=== PATIENT | female | born 1940 | race Caucasian/White ===

== ENCOUNTER 2017-11-19 15:34 | Inpatient (IN) | payer MEDICARE, SELFPAY ==
[2017-11-19] VITALS (8 sets, daily range): BP systolic 98–151; BP diastolic 47–61; PULSE 71–90; RESP 14–18; TEMP 36.7–39.4; O2SAT 94–96; BMI 22.3
--- NOTE | 2017-11-19 15:57 | ED.FEMALEGU ---
HPI - Female Genitourinary <RAMEZ Wyman - Last Filed: 11/19/17 20:54> General Chief complaint: Urogenital-Female Stated complaint: UTI Time Seen by Provider: 11/19/17 15:57 History of Present Illness HPI Narrative: 77-year-old female here for complaint of fever and feeling ill over the past couple of days. She was seen at primary care office approximately 4 days ago and was treated for urinary tract infection with Keflex. She reports over the last couple days she has been feeling worse and has had fever. She denies any urinary symptoms such as dysuria or flank pain. She denies any abdominal pain. No vomiting. Positive p.o. intake. She denies having a cough or cold-like symptoms. No headache. She denies any other concerns or complaints at this time. She does state that she has been taking her antibiotics as prescribed MD Complaint: UTI Related Data Home Medications Medication Instructions Recorded Confirmed Centrum Silver 1 tab PO DAILY 11/19/17 11/19/17 acetaminophen 500 mg PO Q4H PRN 11/19/17 11/19/17 ascorbic acid (vitamin C) [Vitamin 1 tab PO DAILY 11/19/17 11/19/17 C] aspirin 81 mg PO DAILY 11/19/17 11/19/17 calcium carbonate [Calcium 600] 1 tab PO DAILYCC 11/19/17 11/19/17 cholecalciferol (vitamin D3) 2,000 unit PO DAILY 11/19/17 11/19/17 [Vitamin D3] cyanocobalamin (vitamin B-12) 2,000 mcg PO DAILY 11/19/17 11/19/17 [Vitamin B-12] diclofenac sodium 1 applic TOPICAL Q8H PRN 11/19/17 11/19/17 levothyroxine 1.5 tab PO WEEKLY 11/19/17 11/19/17 levothyroxine 75 mcg PO DAILY 11/19/17 11/19/17 omega [id number] oil [Fish Oil] 1 cap PO DAILY 11/19/17 11/19/17 Previous Rx's Medication Instructions Recorded cefuroxime axetil 500 mg PO BID 8 Days #32 tab 11/21/17 dextromethorphan-guaifenesin 10 ml PO Q4H PRN 8 Days ml 11/21/17 potassium chloride [Klor-Con M20] 40 meq PO BIDWM 3 Days #6 tab 11/21/17 Allergies Allergy/AdvReac Type Severity Reaction Status Date / Time No Known Drug Allergies Allergy Verified 11/19/17 15:48 Review of Systems <RAMEZ Wymna - Last Filed: 11/19/17 20:54> Constitutional Reports fever(s) and Reports malaise Eyes Denies change in vision, Denies eye discharge, Denies irritation and Denies loss of vision ENT Ears, Nose, Mouth, and Throat: Denies change in voice, Denies neck pain and Denies sore throat Cardiovascular Denies chest pain, Denies irregular heart rhythm, Denies lightheadedness, Denies palpitations, Denies dyspnea, Denies dyspnea on exertion and Denies orthopnea Respiratory Denies cough, Denies dyspnea, Denies dyspnea on exertion and Denies wheezing Gastrointestinal Gastrointestinal: Denies abdominal pain, Denies change in bowel habits, Denies diarrhea, Denies nausea and Denies vomiting Genitourinary Denies hematuria, Denies flank pain, Denies urinary incontinence and Denies urinary urgency Musculoskeletal Denies neck pain Integumentary/Breasts Denies pruritus, Denies erythema, Denies rash and Denies wounds Neurologic Denies confusion and Denies loss of vision Psychiatric Denies anxiety, Denies confusion, Denies depression, Denies homicidal ideation and Denies suicidal ideation Endocrine Denies palpitations Hematologic/Lymphatic Denies easy bruising Allergic/Immunologic Denies wheezing Exam <RAMEZ Wyman - Last Filed: 11/19/17 20:54> Initial Vital Signs Initial Vital Signs: Vital Signs Temperature 103.0 F H 11/19/17 15:48 Pulse Rate 90 11/19/17 15:48 Respiratory Rate 15 11/19/17 15:48 Blood Pressure 151/54 H 11/19/17 15:48 Pulse Oximetry 95 11/19/17 15:48 Const General: cooperative and well developed Nutritional Appearance: well nourished Orientation: alert, awake, oriented x3 and not confused [facility] Mouth: oral mucosae normal, oropharynx normal and moist mucous membranes Eyes Conjunctivae: conjunctivae normal Sclera: sclerae normal Pupils: PERRL EOM: EOM intact bilaterally Resp Effort & Inspection: normal respiratory effort, able to speak in complete sentences, no respiratory distress and no use of accessory muscles Auscultation: clear to auscultation bilaterally, no rales, no rhonchi and no wheezes Cardio Pulses: normal peripheral pulses GI Inspection: non-distended Palpation: soft, no hepatosplenomegaly, No guarding, No pulsatile mass and No tender Auscultation: normal bowel sounds General: No CVA tenderness Skin General: no rashes or lesions noted, No jaundice and No petechiae <Ritchie Sawyer DO - Last Filed: 11/22/17 08:38> Initial Vital Signs Initial Vital Signs: Vital Signs Temperature 103.0 F H 11/19/17 15:48 Pulse Rate 90 11/19/17 15:48 Respiratory Rate 15 11/19/17 15:48 Blood Pressure 151/54 H 11/19/17 15:48 Pulse Oximetry 95 11/19/17 15:48 Course <RAMEZ Wyman - Last Filed: 11/19/17 20:54> Orders Ordered: Discontinued Medications Acetaminophen (Tylenol) 650 mg PO Q6HR PRN PRN Reason: As Needed for Fever/Mild Pain Last Admin: 11/21/17 10:20 Dose: 650 mg Admin: 11/20/17 21:33 Dose: 650 mg Admin: 11/20/17 11:33 Dose: 650 mg Admin: 11/20/17 03:56 Dose: 650 mg Azithromycin (Zithromax) 500 mg PO DAILY [facility] Last Admin: 11/21/17 10:19 Dose: 500 mg Cefuroxime Axetil (Ceftin) 500 mg PO BID [facility] Last Admin: 11/21/17 10:19 Dose: 500 mg Guaifenesin/Dextromethorphan (Robitussin Dm Syrup) 10 ml PO Q4H PRN PRN Reason: Cough Guaifenesin/Dextromethorphan (Guaifenesin Dm Syrup) 10 ml PO Q4H PRN PRN Reason: Cough Last Admin: 11/21/17 14:40 Dose: 10 ml Admin: 11/21/17 10:20 Dose: 10 ml Admin: 11/21/17 06:05 Dose: 10 ml Admin: 11/20/17 23:49 Dose: 10 ml Admin: 11/20/17 19:45 Dose: 10 ml Sodium Chloride (Normal Saline 0.9%) 1,000 mls @ 1,000 mls/hr IV BOLUS ONE Stop: 11/19/17 17:05 Last Infusion: 11/19/17 17:20 Dose: 0 mls/hr Admin: 11/19/17 16:16 Dose: 1,000 mls/hr Ceftriaxone Sodium/Dextrose (Rocephin) 1 gm in 50 mls @ 100 mls/hr IV NOW ONE Stop: 11/19/17 17:30 Last Infusion: 11/19/17 17:47 Dose: 0 mls/hr Admin: 11/19/17 17:21 Dose: 100 mls/hr Azithromycin 500 mg/ Dextrose 250 mls @ 250 mls/hr IV NOW ONE Stop: 11/19/17 17:14 Last Infusion: 11/19/17 18:56 Dose: 0 mls/hr Admin: 11/19/17 17:50 Dose: 250 mls/hr Azithromycin 500 mg/ Dextrose 250 mls @ 250 mls/hr IV 1800 JUAN Last Infusion: 11/20/17 19:45 Dose: 250 mls/hr Admin: 11/20/17 18:35 Dose: 250 mls/hr Sodium Chloride (Normal Saline 0.9%) 1,000 mls @ 100 mls/hr IV CONT JUAN Stop: 11/20/17 05:29 Last Admin: 11/20/17 01:30 Dose: 100 mls/hr Admin: 11/19/17 20:10 Dose: Ceftriaxone Sodium/Dextrose (Rocephin) 1 gm in 50 mls @ 100 mls/hr IV 1700 JUAN Last Infusion: 11/20/17 18:38 Dose: 100 mls/hr Admin: 11/20/17 17:30 Dose: 100 mls/hr Ketorolac Tromethamine (Toradol) 30 mg IV NOW ONE Stop: 11/19/17 16:07 Last Admin: 11/19/17 16:17 Dose: 30 mg Levothyroxine Sodium (Synthroid) 75 mcg PO 0600 [facility] Last Admin: 11/21/17 06:05 Dose: 75 mcg Admin: 11/20/17 05:36 Dose: 75 mcg Magnesium Hydroxide (Milk Of Magnesia) 30 ml PO DAILY PRN PRN Reason: Constipation Potassium Chloride (Klor-Con M20) 40 meq PO NOW ONE Stop: 11/21/17 07:57 Last Admin: 11/21/17 08:56 Dose: 40 meq Potassium Chloride (Klor-Con M20) 40 meq PO BIDWM [facility] Last Admin: 11/21/17 15:02 Dose: 40 meq Vital Signs - 8 hr 11/19/17 15:48 11/19/17 17:05 11/19/17 17:19 Temperature 103.0 F H 101.3 F H Pulse Rate 90 79 Respiratory Rate 15 16 Blood Pressure 151/54 H Blood Pressure [Left Arm] 113/50 L Pulse Oximetry 95 94 11/19/17 17:30 11/19/17 18:50 11/19/17 20:05 Temperature 98.8 F 98.4 F Pulse Rate 75 71 71 Respiratory Rate 14 18 Blood Pressure 114/61 Blood Pressure [Left Arm] 106/47 L 98/52 L Pulse Oximetry 95 95 95 <Ritchie Sawyer DO - Last Filed: 11/22/17 08:38> Orders Ordered: Discontinued Medications Acetaminophen (Tylenol) 650 mg PO Q6HR PRN PRN Reason: As Needed for Fever/Mild Pain Last Admin: 11/21/17 10:20 Dose: 650 mg Admin: 11/20/17 21:33 Dose: 650 mg Admin: 11/20/17 11:33 Dose: 650 mg Admin: 11/20/17 03:56 Dose: 650 mg Azithromycin (Zithromax) 500 mg PO DAILY [facility] Last Admin: 11/21/17 10:19 Dose: 500 mg Cefuroxime Axetil (Ceftin) 500 mg PO BID [facility] Last Admin: 11/21/17 10:19 Dose: 500 mg Guaifenesin/Dextromethorphan (Robitussin Dm Syrup) 10 ml PO Q4H PRN PRN Reason: Cough Guaifenesin/Dextromethorphan (Guaifenesin Dm Syrup) 10 ml PO Q4H PRN PRN Reason: Cough Last Admin: 11/21/17 14:40 Dose: 10 ml Admin: 11/21/17 10:20 Dose: 10 ml Admin: 11/21/17 06:05 Dose: 10 ml Admin: 11/20/17 23:49 Dose: 10 ml Admin: 11/20/17 19:45 Dose: 10 ml Sodium Chloride (Normal Saline 0.9%) 1,000 mls @ 1,000 mls/hr IV BOLUS ONE Stop: 11/19/17 17:05 Last Infusion: 11/19/17 17:20 Dose: 0 mls/hr Admin: 11/19/17 16:16 Dose: 1,000 mls/hr Ceftriaxone Sodium/Dextrose (Rocephin) 1 gm in 50 mls @ 100 mls/hr IV NOW ONE Stop: 11/19/17 17:30 Last Infusion: 11/19/17 17:47 Dose: 0 mls/hr Admin: 11/19/17 17:21 Dose: 100 mls/hr Azithromycin 500 mg/ Dextrose 250 mls @ 250 mls/hr IV NOW ONE Stop: 11/19/17 17:14 Last Infusion: 11/19/17 18:56 Dose: 0 mls/hr Admin: 11/19/17 17:50 Dose: 250 mls/hr Azithromycin 500 mg/ Dextrose 250 mls @ 250 mls/hr IV 1800 JUAN Last Infusion: 11/20/17 19:45 Dose: 250 mls/hr Admin: 11/20/17 18:35 Dose: 250 mls/hr Sodium Chloride (Normal Saline 0.9%) 1,000 mls @ 100 mls/hr IV CONT JUAN Stop: 11/20/17 05:29 Last Admin: 11/20/17 01:30 Dose: 100 mls/hr Admin: 11/19/17 20:10 Dose: Ceftriaxone Sodium/Dextrose (Rocephin) 1 gm in 50 mls @ 100 mls/hr IV 1700 JUAN Last Infusion: 11/20/17 18:38 Dose: 100 mls/hr Admin: 11/20/17 17:30 Dose: 100 mls/hr Ketorolac Tromethamine (Toradol) 30 mg IV NOW ONE Stop: 11/19/17 16:07 Last Admin: 11/19/17 16:17 Dose: 30 mg Levothyroxine Sodium (Synthroid) 75 mcg PO 0600 JUAN Last Admin: 11/21/17 06:05 Dose: 75 mcg Admin: 11/20/17 05:36 Dose: 75 mcg Magnesium Hydroxide (Milk Of Magnesia) 30 ml PO DAILY PRN PRN Reason: Constipation Potassium Chloride (Klor-Con M20) 40 meq PO NOW ONE Stop: 11/21/17 07:57 Last Admin: 11/21/17 08:56 Dose: 40 meq Potassium Chloride (Klor-Con M20) 40 meq PO BIDWM JUAN Last Admin: 11/21/17 15:02 Dose: 40 meq Vital Signs - 8 hr 11/19/17 15:48 11/19/17 17:05 11/19/17 17:19 Temperature 103.0 F H 101.3 F H Pulse Rate 90 79 Respiratory Rate 15 16 Blood Pressure 151/54 H Blood Pressure [Left Arm] 113/50 L Pulse Oximetry 95 94 11/19/17 17:30 11/19/17 18:50 11/19/17 20:05 Temperature 98.8 F 98.4 F Pulse Rate 75 71 71 Respiratory Rate 14 18 Blood Pressure 114/61 Blood Pressure [Left Arm] 106/47 L 98/52 L Pulse Oximetry 95 95 95 MDM - Female Genitourinary <RAMEZ Wyman - Last Filed: 11/19/17 20:54> Lab Data Result diagrams: 11/21/17 05:03 11/21/17 05:03 Lab Results 11/19/17 11/19/17 11/19/17 Range/Units 15:45 15:54 15:54 WBC 12.7 H (4.5-11.0) X10^3/uL RBC 3.65 L (4.0-5.2) X10^6/uL Hgb 11.4 L (12.0-16.0) g/dL Hct 31.1 L (36-46) % MCV 85.1 (80-100) fL MCH 31.2 (26-34) PG MCHC 36.7 H (30-36) % RDW 13.4 (11.6-14.8) % Plt Count 157 (150-400) X10^3/uL Neut % (Auto) 85.0 H (50-75) % Lymph % (Auto) 5.2 L (25-40) % [place] % (Auto) 9.5 (3-14) % Eos % (Auto) 0.0 L (2-4) % Baso % (Auto) 0.3 (0-2) % Neut # (Auto) 31146 H (3944-5370) /uL RBC Morphology Poikilocytosis Spherocytes Sodium (137-145) mmol/L Potassium (3.4-5.1) mmol/L Chloride (98-107) mmol/L Carbon Dioxide (22-32) mmol/L BUN (7-17) mg/dL Creatinine (0.52-1.04) mg/dL Estimated GFR (>60) mL/min BUN/Creatinine Ratio (6-22) Glucose (80-110) mg/dL Lactate (0.7-2.1) mmol/L Calcium (8.4-10.2) mg/dL Iron (37-170) ug/dL TIBC (265-497) ug/dL % Saturation (15-50) % Transferrin (206-381) mg/dL Ferritin (11.1-264) ng/mL Total Bilirubin (0.2-1.3) mg/dL AST (14-36) IU/L ALT (9-52) IU/L Alkaline Phosphatase (38-126) U/L Total Protein (6.3-8.2) g/dL Albumin (3.5-5.0) g/dL Globulin (1.7-4.1) g/dL Albumin/Globulin Ratio (1.0-2.8) Procalcitonin 1.06 H (<0.5) ng/mL Urine Color Yellow Urine Appearance Sl cloudy Urine pH 6.0 (4.5-8.0) Ur Specific [place] 1.020 (1.000-1.035) Urine Protein 2+ H (Negative) Urine Glucose (UA) Negative (Normal) g/dL Urine Ketones 1+ H (NEGATIVE) Urine Occult Blood 2+ H (Negative) Urine Nitrate Negative (Negative) Urine Bilirubin Negative (NEGATIVE) Urine Urobilinogen 0.2 (0.2) E.U./dL Ur Leukocyte Esterase Trace H (NEGATIVE) Urine RBC 0-1/hpf (0-5/HPF) Urine WBC 30-100/hpf H (0-5/HPF) Ur Squamous Epith Cells 0-1 /hpf Ur Transition Epith Cell 0-1/hpf (0-5/HPF) Ur Renal Epithelial Cell 0-1/hpf Urine Bacteria Moderate (10-30) H (None) Ur Culture Indicated? Specimen cultured Micro UA Comment Not Reportable Influenza A & B (PCR) (Negative) 11/19/17 11/19/17 11/19/17 Range/Units 15:54 15:54 15:54 WBC (4.5-11.0) X10^3/uL RBC (4.0-5.2) X10^6/uL Hgb (12.0-16.0) g/dL Hct (36-46) % MCV (80-100) fL MCH (26-34) PG MCHC (30-36) % RDW (11.6-14.8) % Plt Count (150-400) X10^3/uL Neut % (Auto) (50-75) % Lymph % (Auto) (25-40) % [place] % (Auto) (3-14) % Eos % (Auto) (2-4) % Baso % (Auto) (0-2) % Neut # (Auto) (3457-5222) /uL RBC Morphology Poikilocytosis Spherocytes Sodium 129 L (137-145) mmol/L Potassium 3.8 (3.4-5.1) mmol/L Chloride 91 L (98-107) mmol/L Carbon Dioxide 24 (22-32) mmol/L BUN 21 H (7-17) mg/dL Creatinine 0.80 (0.52-1.04) mg/dL Estimated GFR > 60.0 (>60) mL/min BUN/Creatinine Ratio 26.3 H (6-22) Glucose 117 H (80-110) mg/dL Lactate 1.1 (0.7-2.1) mmol/L Calcium 8.6 (8.4-10.2) mg/dL Iron (37-170) ug/dL TIBC (265-497) ug/dL % Saturation (15-50) % Transferrin (206-381) mg/dL Ferritin 694.0 H (11.1-264) ng/mL Total Bilirubin 0.9 (0.2-1.3) mg/dL AST 56 H (14-36) IU/L ALT 73 H (9-52) IU/L Alkaline Phosphatase 160 H (38-126) U/L Total Protein 6.9 (6.3-8.2) g/dL Albumin 3.7 (3.5-5.0) g/dL Globulin 3.2 (1.7-4.1) g/dL Albumin/Globulin Ratio 1.2 (1.0-2.8) Procalcitonin (<0.5) ng/mL Urine Color Urine Appearance Urine pH (4.5-8.0) Ur Specific [place] (1.000-1.035) Urine Protein (Negative) Urine Glucose (UA) (Normal) g/dL Urine Ketones (NEGATIVE) Urine Occult Blood (Negative) Urine Nitrate (Negative) Urine Bilirubin (NEGATIVE) Urine Urobilinogen (0.2) E.U./dL Ur Leukocyte Esterase (NEGATIVE) Urine RBC (0-5/HPF) Urine WBC (0-5/HPF) Ur Squamous Epith Cells Ur Transition Epith Cell (0-5/HPF) Ur Renal Epithelial Cell Urine Bacteria (None) Ur Culture Indicated? Micro UA Comment Influenza A & B (PCR) (Negative) 11/19/17 11/19/17 11/20/17 Range/Units 15:54 16:08 05:10 WBC 9.2 (4.5-11.0) X10^3/uL RBC 3.16 L (4.0-5.2) X10^6/uL Hgb 9.9 L (12.0-16.0) g/dL Hct 26.6 L (36-46) % MCV 84.4 (80-100) fL MCH 31.4 (26-34) PG MCHC 37.2 H (30-36) % RDW 13.7 (11.6-14.8) % Plt Count 137 L (150-400) X10^3/uL Neut % (Auto) 85.1 H (50-75) % Lymph % (Auto) 4.8 L (25-40) % [place] % (Auto) 9.7 (3-14) % Eos % (Auto) 0.1 L (2-4) % Baso % (Auto) 0.3 (0-2) % Neut # (Auto) 7800 H (1747-4603) /uL RBC Morphology Not Reportable Poikilocytosis 1+ H Spherocytes Sodium (137-145) mmol/L Potassium (3.4-5.1) mmol/L Chloride (98-107) mmol/L Carbon Dioxide (22-32) mmol/L BUN (7-17) mg/dL Creatinine (0.52-1.04) mg/dL Estimated GFR (>60) mL/min BUN/Creatinine Ratio (6-22) Glucose (80-110) mg/dL Lactate (0.7-2.1) mmol/L Calcium (8.4-10.2) mg/dL Iron 21 L (37-170) ug/dL TIBC 326 (265-497) ug/dL % Saturation 6 L (15-50) % Transferrin 157 L (206-381) mg/dL Ferritin (11.1-264) ng/mL Total Bilirubin (0.2-1.3) mg/dL AST (14-36) IU/L ALT (9-52) IU/L Alkaline Phosphatase (38-126) U/L Total Protein (6.3-8.2) g/dL Albumin (3.5-5.0) g/dL Globulin (1.7-4.1) g/dL Albumin/Globulin Ratio (1.0-2.8) Procalcitonin (<0.5) ng/mL Urine Color Urine Appearance Urine pH (4.5-8.0) Ur Specific [place] (1.000-1.035) Urine Protein (Negative) Urine Glucose (UA) (Normal) g/dL Urine Ketones (NEGATIVE) Urine Occult Blood (Negative) Urine Nitrate (Negative) Urine Bilirubin (NEGATIVE) Urine Urobilinogen (0.2) E.U./dL Ur Leukocyte Esterase (NEGATIVE) Urine RBC (0-5/HPF) Urine WBC (0-5/HPF) Ur Squamous Epith Cells Ur Transition Epith Cell (0-5/HPF) Ur Renal Epithelial Cell Urine Bacteria (None) Ur Culture Indicated? Micro UA Comment Influenza A & B (PCR) Negative (Negative) 11/21/17 11/21/17 Range/Units 05:03 05:03 WBC 9.4 (4.5-11.0) X10^3/uL RBC 3.43 L (4.0-5.2) X10^6/uL Hgb 10.7 L (12.0-16.0) g/dL Hct 29.1 L (36-46) % MCV 85.0 (80-100) fL MCH 31.4 (26-34) PG MCHC 36.9 H (30-36) % RDW 13.5 (11.6-14.8) % Plt Count 165 (150-400) X10^3/uL Neut % (Auto) 76.5 H (50-75) % Lymph % (Auto) 11.8 L (25-40) % [place] % (Auto) 10.4 (3-14) % Eos % (Auto) 0.7 L (2-4) % Baso % (Auto) 0.6 (0-2) % Neut # (Auto) 7200 H (3666-0967) /uL RBC Morphology Not Reportable Poikilocytosis 1+ H Spherocytes 1+ H Sodium 134 L (137-145) mmol/L Potassium 3.0 L (3.4-5.1) mmol/L Chloride 98 (98-107) mmol/L Carbon Dioxide 27 (22-32) mmol/L BUN 8 (7-17) mg/dL Creatinine 0.60 (0.52-1.04) mg/dL Estimated GFR > 60.0 (>60) mL/min BUN/Creatinine Ratio 13.3 (6-22) Glucose 98 (80-110) mg/dL Lactate (0.7-2.1) mmol/L Calcium 8.4 (8.4-10.2) mg/dL Iron (37-170) ug/dL TIBC (265-497) ug/dL % Saturation (15-50) % Transferrin (206-381) mg/dL Ferritin (11.1-264) ng/mL Total Bilirubin (0.2-1.3) mg/dL AST (14-36) IU/L ALT (9-52) IU/L Alkaline Phosphatase (38-126) U/L Total Protein (6.3-8.2) g/dL Albumin (3.5-5.0) g/dL Globulin (1.7-4.1) g/dL Albumin/Globulin Ratio (1.0-2.8) Procalcitonin (<0.5) ng/mL Urine Color Urine Appearance Urine pH (4.5-8.0) Ur Specific [place] (1.000-1.035) Urine Protein (Negative) Urine Glucose (UA) (Normal) g/dL Urine Ketones (NEGATIVE) Urine Occult Blood (Negative) Urine Nitrate (Negative) Urine Bilirubin (NEGATIVE) Urine Urobilinogen (0.2) E.U./dL Ur Leukocyte Esterase (NEGATIVE) Urine RBC (0-5/HPF) Urine WBC (0-5/HPF) Ur Squamous Epith Cells Ur Transition Epith Cell (0-5/HPF) Ur Renal Epithelial Cell Urine Bacteria (None) Ur Culture Indicated? Micro UA Comment Influenza A & B (PCR) (Negative) Imaging Data Chest x-ray: Radiologist's impression: PROCEDURE: XR CHEST 2V INDICATIONS: Fever TECHNIQUE: 2 views of the chest were acquired. COMPARISON: None. FINDINGS: Surgical changes and devices: None. Lungs and pleura: No pleural effusions or pneumothorax. Pulmonary consolidation is present in the posterolateral right lower lobe consistent with pneumonia. Mediastinum: Mediastinal contours are normal. Heart size is normal. Bones and chest wall: No suspicious bony abnormalities. Scoliosis. Soft tissues appear unremarkable. IMPRESSION: Right lower lobe pneumonia Dictated by: Ishan Peck M.D. on 11/19/2017 at 16:49 Approved by: Ishan Peck M.D. on 11/19/2017 at 16:50 MDM Narrative Medical decision making narrative: CBC shows elevated white count. Lactate was negative. Procalcitonin was slightly elevated. Urinalysis indicates urinary tract infection. Chest x-ray was obtained shows right lower lobe pneumonia. Patient states she felt better after getting fluids in the emergency room and also Toradol. Blood cultures are obtained and pending. Urine culture is pending. Discussed case with Dr. Esquivel hospitalist for admission for IV antibiotics and he accepted patient. Patient was given Rocephin IV and azithromycin in the emergency room. Patient is admitted to inpatient services for further care and treatment. <Ritchie Sawyer, - Last Filed: 11/22/17 08:38> Lab Data Lab Results 11/19/17 11/19/17 11/19/17 Range/Units 15:45 15:54 15:54 WBC 12.7 H (4.5-11.0) X10^3/uL RBC 3.65 L (4.0-5.2) X10^6/uL Hgb 11.4 L (12.0-16.0) g/dL Hct 31.1 L (36-46) % MCV 85.1 (80-100) fL MCH 31.2 (26-34) PG MCHC 36.7 H (30-36) % RDW 13.4 (11.6-14.8) % Plt Count 157 (150-400) X10^3/uL Neut % (Auto) 85.0 H (50-75) % Lymph % (Auto) 5.2 L (25-40) % [place] % (Auto) 9.5 (3-14) % Eos % (Auto) 0.0 L (2-4) % Baso % (Auto) 0.3 (0-2) % Neut # (Auto) 27401 H (0547-9036) /uL RBC Morphology Poikilocytosis Spherocytes Sodium (137-145) mmol/L Potassium (3.4-5.1) mmol/L Chloride (98-107) mmol/L Carbon Dioxide (22-32) mmol/L BUN (7-17) mg/dL Creatinine (0.52-1.04) mg/dL Estimated GFR (>60) mL/min BUN/Creatinine Ratio (6-22) Glucose (80-110) mg/dL Lactate (0.7-2.1) mmol/L Calcium (8.4-10.2) mg/dL Iron (37-170) ug/dL TIBC (265-497) ug/dL % Saturation (15-50) % Transferrin (206-381) mg/dL Ferritin (11.1-264) ng/mL Total Bilirubin (0.2-1.3) mg/dL AST (14-36) IU/L ALT (9-52) IU/L Alkaline Phosphatase (38-126) U/L Total Protein (6.3-8.2) g/dL Albumin (3.5-5.0) g/dL Globulin (1.7-4.1) g/dL Albumin/Globulin Ratio (1.0-2.8) Procalcitonin 1.06 H (<0.5) ng/mL Urine Color Yellow Urine Appearance Sl cloudy Urine pH 6.0 (4.5-8.0) Ur Specific [place] 1.020 (1.000-1.035) Urine Protein 2+ H (Negative) Urine Glucose (UA) Negative (Normal) g/dL Urine Ketones 1+ H (NEGATIVE) Urine Occult Blood 2+ H (Negative) Urine Nitrate Negative (Negative) Urine Bilirubin Negative (NEGATIVE) Urine Urobilinogen 0.2 (0.2) E.U./dL Ur Leukocyte Esterase Trace H (NEGATIVE) Urine RBC 0-1/hpf (0-5/HPF) Urine WBC 30-100/hpf H (0-5/HPF) Ur Squamous Epith Cells 0-1 /hpf Ur Transition Epith Cell 0-1/hpf (0-5/HPF) Ur Renal Epithelial Cell 0-1/hpf Urine Bacteria Moderate (10-30) H (None) Ur Culture Indicated? Specimen cultured Micro UA Comment Not Reportable Influenza A & B (PCR) (Negative) 11/19/17 11/19/17 11/19/17 Range/Units 15:54 15:54 15:54 WBC (4.5-11.0) X10^3/uL RBC (4.0-5.2) X10^6/uL Hgb (12.0-16.0) g/dL Hct (36-46) % MCV (80-100) fL MCH (26-34) PG MCHC (30-36) % RDW (11.6-14.8) % Plt Count (150-400) X10^3/uL Neut % (Auto) (50-75) % Lymph % (Auto) (25-40) % [place] % (Auto) (3-14) % Eos % (Auto) (2-4) % Baso % (Auto) (0-2) % Neut # (Auto) (7243-7380) /uL RBC Morphology Poikilocytosis Spherocytes Sodium 129 L (137-145) mmol/L Potassium 3.8 (3.4-5.1) mmol/L Chloride 91 L (98-107) mmol/L Carbon Dioxide 24 (22-32) mmol/L BUN 21 H (7-17) mg/dL Creatinine 0.80 (0.52-1.04) mg/dL Estimated GFR > 60.0 (>60) mL/min BUN/Creatinine Ratio 26.3 H (6-22) Glucose 117 H (80-110) mg/dL Lactate 1.1 (0.7-2.1) mmol/L Calcium 8.6 (8.4-10.2) mg/dL Iron (37-170) ug/dL TIBC (265-497) ug/dL % Saturation (15-50) % Transferrin (206-381) mg/dL Ferritin 694.0 H (11.1-264) ng/mL Total Bilirubin 0.9 (0.2-1.3) mg/dL AST 56 H (14-36) IU/L ALT 73 H (9-52) IU/L Alkaline Phosphatase 160 H (38-126) U/L Total Protein 6.9 (6.3-8.2) g/dL Albumin 3.7 (3.5-5.0) g/dL Globulin 3.2 (1.7-4.1) g/dL Albumin/Globulin Ratio 1.2 (1.0-2.8) Procalcitonin (<0.5) ng/mL Urine Color Urine Appearance Urine pH (4.5-8.0) Ur Specific [place] (1.000-1.035) Urine Protein (Negative) Urine Glucose (UA) (Normal) g/dL Urine Ketones (NEGATIVE) Urine Occult Blood (Negative) Urine Nitrate (Negative) Urine Bilirubin (NEGATIVE) Urine Urobilinogen (0.2) E.U./dL Ur Leukocyte Esterase (NEGATIVE) Urine RBC (0-5/HPF) Urine WBC (0-5/HPF) Ur Squamous Epith Cells Ur Transition Epith Cell (0-5/HPF) Ur Renal Epithelial Cell Urine Bacteria (None) Ur Culture Indicated? Micro UA Comment Influenza A & B (PCR) (Negative) 11/19/17 11/19/17 11/20/17 Range/Units 15:54 16:08 05:10 WBC 9.2 (4.5-11.0) X10^3/uL RBC 3.16 L (4.0-5.2) X10^6/uL Hgb 9.9 L (12.0-16.0) g/dL Hct 26.6 L (36-46) % MCV 84.4 (80-100) fL MCH 31.4 (26-34) PG MCHC 37.2 H (30-36) % RDW 13.7 (11.6-14.8) % Plt Count 137 L (150-400) X10^3/uL Neut % (Auto) 85.1 H (50-75) % Lymph % (Auto) 4.8 L (25-40) % [place] % (Auto) 9.7 (3-14) % Eos % (Auto) 0.1 L (2-4) % Baso % (Auto) 0.3 (0-2) % Neut # (Auto) 7800 H (8224-1975) /uL RBC Morphology Not Reportable Poikilocytosis 1+ H Spherocytes Sodium (137-145) mmol/L Potassium (3.4-5.1) mmol/L Chloride (98-107) mmol/L Carbon Dioxide (22-32) mmol/L BUN (7-17) mg/dL Creatinine (0.52-1.04) mg/dL Estimated GFR (>60) mL/min BUN/Creatinine Ratio (6-22) Glucose (80-110) mg/dL Lactate (0.7-2.1) mmol/L Calcium (8.4-10.2) mg/dL Iron 21 L (37-170) ug/dL TIBC 326 (265-497) ug/dL % Saturation 6 L (15-50) % Transferrin 157 L (206-381) mg/dL Ferritin (11.1-264) ng/mL Total Bilirubin (0.2-1.3) mg/dL AST (14-36) IU/L ALT (9-52) IU/L Alkaline Phosphatase (38-126) U/L Total Protein (6.3-8.2) g/dL Albumin (3.5-5.0) g/dL Globulin (1.7-4.1) g/dL Albumin/Globulin Ratio (1.0-2.8) Procalcitonin (<0.5) ng/mL Urine Color Urine Appearance Urine pH (4.5-8.0) Ur Specific [place] (1.000-1.035) Urine Protein (Negative) Urine Glucose (UA) (Normal) g/dL Urine Ketones (NEGATIVE) Urine Occult Blood (Negative) Urine Nitrate (Negative) Urine Bilirubin (NEGATIVE) Urine Urobilinogen (0.2) E.U./dL Ur Leukocyte Esterase (NEGATIVE) Urine RBC (0-5/HPF) Urine WBC (0-5/HPF) Ur Squamous Epith Cells Ur Transition Epith Cell (0-5/HPF) Ur Renal Epithelial Cell Urine Bacteria (None) Ur Culture Indicated? Micro UA Comment Influenza A & B (PCR) Negative (Negative) 11/21/17 11/21/17 Range/Units 05:03 05:03 WBC 9.4 (4.5-11.0) X10^3/uL RBC 3.43 L (4.0-5.2) X10^6/uL Hgb 10.7 L (12.0-16.0) g/dL Hct 29.1 L (36-46) % MCV 85.0 (80-100) fL MCH 31.4 (26-34) PG MCHC 36.9 H (30-36) % RDW 13.5 (11.6-14.8) % Plt Count 165 (150-400) X10^3/uL Neut % (Auto) 76.5 H (50-75) % Lymph % (Auto) 11.8 L (25-40) % [place] % (Auto) 10.4 (3-14) % Eos % (Auto) 0.7 L (2-4) % Baso % (Auto) 0.6 (0-2) % Neut # (Auto) 7200 H (1030-8152) /uL RBC Morphology Not Reportable Poikilocytosis 1+ H Spherocytes 1+ H Sodium 134 L (137-145) mmol/L Potassium 3.0 L (3.4-5.1) mmol/L Chloride 98 (98-107) mmol/L Carbon Dioxide 27 (22-32) mmol/L BUN 8 (7-17) mg/dL Creatinine 0.60 (0.52-1.04) mg/dL Estimated GFR > 60.0 (>60) mL/min BUN/Creatinine Ratio 13.3 (6-22) Glucose 98 (80-110) mg/dL Lactate (0.7-2.1) mmol/L Calcium 8.4 (8.4-10.2) mg/dL Iron (37-170) ug/dL TIBC (265-497) ug/dL % Saturation (15-50) % Transferrin (206-381) mg/dL Ferritin (11.1-264) ng/mL Total Bilirubin (0.2-1.3) mg/dL AST (14-36) IU/L ALT (9-52) IU/L Alkaline Phosphatase (38-126) U/L Total Protein (6.3-8.2) g/dL Albumin (3.5-5.0) g/dL Globulin (1.7-4.1) g/dL Albumin/Globulin Ratio (1.0-2.8) Procalcitonin (<0.5) ng/mL Urine Color Urine Appearance Urine pH (4.5-8.0) Ur Specific [place] (1.000-1.035) Urine Protein (Negative) Urine Glucose (UA) (Normal) g/dL Urine Ketones (NEGATIVE) Urine Occult Blood (Negative) Urine Nitrate (Negative) Urine Bilirubin (NEGATIVE) Urine Urobilinogen (0.2) E.U./dL Ur Leukocyte Esterase (NEGATIVE) Urine RBC (0-5/HPF) Urine WBC (0-5/HPF) Ur Squamous Epith Cells Ur Transition Epith Cell (0-5/HPF) Ur Renal Epithelial Cell Urine Bacteria (None) Ur Culture Indicated? Micro UA Comment Influenza A & B (PCR) (Negative) Discharge Plan Departure Patient Disposition: Admitted As Inpatient Clinical Impression: Community acquired pneumonia, Urinary tract infection Discharge Date/Time: 11/19/17 19:10 Interventions: ED Discharge Assessment Last Done: 11/19/17 18:45 Admit Date/Time: 11/19/17 19:22 Admit Provider: Archie Esquivel <Ritchie Sawyer DO - Last Filed: 11/22/17 08:38> Cosign ED Attending Cospeaceature Attestation: I was available for consultation during this patient's emergency department encounter
--- NOTE | 2017-11-19 16:06 | DI.RAD.S_ITS ---
PROCEDURE: XR CHEST 2V INDICATIONS: Fever TECHNIQUE: 2 views of the chest were acquired. COMPARISON: None. FINDINGS: Surgical changes and devices: None. Lungs and pleura: No pleural effusions or pneumothorax. Pulmonary consolidation is present in the posterolateral right lower lobe consistent with pneumonia. Mediastinum: Mediastinal contours are normal. Heart size is normal. Bones and chest wall: No suspicious bony abnormalities. Scoliosis. Soft tissues appear unremarkable. IMPRESSION: Right lower lobe pneumonia Dictated by: Ishan Peck M.D. on 11/19/2017 at 16:49 Approved by: Ishan Peck M.D. on 11/19/2017 at 16:50
[2017-11-19 16:14] LABS: Basophils Percent Auto 0.3 % (0-2); Neutrophils Absolute Auto 10800 /uL (3000-5900); Red Cell Distribution Width 13.4 % (11.6-14.8); White Blood Cell Count 12.7 X10^3/uL (4.5-11.0)
[2017-11-19] MEDS: SODIUM CHLORIDE 0.9% 1,000 ML 1000 ML IV (16:16)
[2017-11-19] MEDS: KETOROLAC 30 MG/ML VIAL IV (16:17)
[2017-11-19 16:22] LABS: Alanine Aminotransferase 73 IU/L (9-52); Albumin 3.7 g/dL (3.5-5.0); Albumin Globulin Ratio 1.2 (1.0-2.8); Alkaline Phosphatase 160 U/L (38-126); Aspartate Aminotransferase 56 IU/L (14-36); BUN Creatinine Ratio 26.3 (6-22); Bilirubin Total 0.9 mg/dL (0.2-1.3); Blood Urea Nitrogen 21 mg/dL (7-17); Calcium 8.6 mg/dL (8.4-10.2); Carbon Dioxide 24 mmol/L (22-32); Chloride 91 mmol/L (98-107); Estimated Glomerular Filt Rate > 60.0 mL/min (>60); Globulin 3.2 g/dL (1.7-4.1); Glucose 117 mg/dL (80-110); HEMOLYSIS < 15 (0-50); Lactate (Lactic Acid) 1.1 mmol/L (0.7-2.1); Potassium 3.8 mmol/L (3.4-5.1); Sodium 129 mmol/L (137-145); Total Protein 6.9 g/dL (6.3-8.2)
[2017-11-19 16:25] LABS: Add Manual Diff / Slide Review NO; Hematocrit 31.1 % (36-46); Hemoglobin 11.4 g/dL (12.0-16.0); Lymphocytes Percent Auto 5.2 % (25-40); Mean Corpuscular Hemoglobin 31.2 PG (26-34); Mean Corpuscular Volume 85.1 fL (80-100); Monocytes Percent Auto 9.5 % (3-14); Platelet Count 157 X10^3/uL (150-400); Red Blood Cell Count 3.65 X10^6/uL (4.0-5.2)
[2017-11-19 16:25] LABS: Appearance Urine UA SL CLOUDY; Bilirubin Urine UA NEGATIVE (NEGATIVE); Color Urine UA YELLOW; Glucose Urine UA NEGATIVE (Normal); Ketones Urine UA 1+ (NEGATIVE); Leukocyte Esterase Urine UA TRACE (NEGATIVE); Nitrite Urine UA Negative (Negative); Occult Blood Urine UA 2+ (Negative); Protein Urine UA 2+ (Negative); Urobilinogen Urine UA 0.2 E.U./dL (0.2)
[2017-11-19 16:29] LABS: Mean Corpuscular HGB Conc 36.7 % (30-36)
[2017-11-19 16:45] LABS: Procalcitonin 1.06 ng/mL (<0.5)
[2017-11-19 16:48] LABS: Influenza A and B by PCR Rapid Negative (Negative)
[2017-11-19 16:52] LABS: Bacteria Urine Moderate (10-30); RBC Urine 0-1/HPF (0-5/HPF); Renal Epithelial Cells Urine 0-1/HPF; Squamous Epithelial Cell Urine 0-1 /HPF; Transitional Epi Cells Urine 0-1/HPF (0-5/HPF); WBC Urine 30-100/HPF (0-5/HPF)
[2017-11-19 16:53] LABS: Culture Indicated Urine Specimen Cultured
--- NOTE | 2017-11-19 17:19 | ED_ITS ---
HPI - Female Genitourinary <RAMEZ Wyman - Last Filed: 11/19/17 20:54> General Chief complaint: Urogenital-Female Stated complaint: UTI Time Seen by Provider: 11/19/17 15:57 History of Present Illness HPI Narrative: 77-year-old female here for complaint of fever and feeling ill over the past couple of days. She was seen at primary care office approximately 4 days ago and was treated for urinary tract infection with Keflex. She reports over the last couple days she has been feeling worse and has had fever. She denies any urinary symptoms such as dysuria or flank pain. She denies any abdominal pain. No vomiting. Positive p.o. intake. She denies having a cough or cold-like symptoms. No headache. She denies any other concerns or complaints at this time. She does state that she has been taking her antibiotics as prescribed MD Complaint: UTI Related Data Home Medications Medication Instructions Recorded Confirmed Centrum Silver 1 tab PO DAILY 11/19/17 11/19/17 acetaminophen 500 mg PO Q4H PRN 11/19/17 11/19/17 ascorbic acid (vitamin C) [Vitamin 1 tab PO DAILY 11/19/17 11/19/17 C] aspirin 81 mg PO DAILY 11/19/17 11/19/17 calcium carbonate [Calcium 600] 1 tab PO DAILYCC 11/19/17 11/19/17 cholecalciferol (vitamin D3) 2,000 unit PO DAILY 11/19/17 11/19/17 [Vitamin D3] cyanocobalamin (vitamin B-12) 2,000 mcg PO DAILY 11/19/17 11/19/17 [Vitamin B-12] diclofenac sodium 1 applic TOPICAL Q8H PRN 11/19/17 11/19/17 levothyroxine 1.5 tab PO WEEKLY 11/19/17 11/19/17 levothyroxine 75 mcg PO DAILY 11/19/17 11/19/17 omega [id number] oil [Fish Oil] 1 cap PO DAILY 11/19/17 11/19/17 Previous Rx's Medication Instructions Recorded cefuroxime axetil 500 mg PO BID 8 Days #32 tab 11/21/17 dextromethorphan-guaifenesin 10 ml PO Q4H PRN 8 Days ml 11/21/17 potassium chloride [Klor-Con M20] 40 meq PO BIDWM 3 Days #6 tab 11/21/17 Allergies Allergy/AdvReac Type Severity Reaction Status Date / Time No Known Drug Allergies Allergy Verified 11/19/17 15:48 Review of Systems <RAMEZ Wyman - Last Filed: 11/19/17 20:54> Constitutional Reports fever(s) and Reports malaise Eyes Denies change in vision, Denies eye discharge, Denies irritation and Denies loss of vision ENT Ears, Nose, Mouth, and Throat: Denies change in voice, Denies neck pain and Denies sore throat Cardiovascular Denies chest pain, Denies irregular heart rhythm, Denies lightheadedness, Denies palpitations, Denies dyspnea, Denies dyspnea on exertion and Denies orthopnea Respiratory Denies cough, Denies dyspnea, Denies dyspnea on exertion and Denies wheezing Gastrointestinal Gastrointestinal: Denies abdominal pain, Denies change in bowel habits, Denies diarrhea, Denies nausea and Denies vomiting Genitourinary Denies hematuria, Denies flank pain, Denies urinary incontinence and Denies urinary urgency Musculoskeletal Denies neck pain Integumentary/Breasts Denies pruritus, Denies erythema, Denies rash and Denies wounds Neurologic Denies confusion and Denies loss of vision Psychiatric Denies anxiety, Denies confusion, Denies depression, Denies homicidal ideation and Denies suicidal ideation Endocrine Denies palpitations Hematologic/Lymphatic Denies easy bruising Allergic/Immunologic Denies wheezing Exam <RAMEZ Wyman - Last Filed: 11/19/17 20:54> Initial Vital Signs Initial Vital Signs: Vital Signs Temperature 103.0 F H 11/19/17 15:48 Pulse Rate 90 11/19/17 15:48 Respiratory Rate 15 11/19/17 15:48 Blood Pressure 151/54 H 11/19/17 15:48 Pulse Oximetry 95 11/19/17 15:48 Const General: cooperative and well developed Nutritional Appearance: well nourished Orientation: alert, awake, oriented x3 and not confused [facility] Mouth: oral mucosae normal, oropharynx normal and moist mucous membranes Eyes Conjunctivae: conjunctivae normal Sclera: sclerae normal Pupils: PERRL EOM: EOM intact bilaterally Resp Effort & Inspection: normal respiratory effort, able to speak in complete sentences, no respiratory distress and no use of accessory muscles Auscultation: clear to auscultation bilaterally, no rales, no rhonchi and no wheezes Cardio Pulses: normal peripheral pulses GI Inspection: non-distended Palpation: soft, no hepatosplenomegaly, No guarding, No pulsatile mass and No tender Auscultation: normal bowel sounds General: No CVA tenderness Skin General: no rashes or lesions noted, No jaundice and No petechiae <Ritchie Sawyer DO - Last Filed: 11/22/17 08:38> Initial Vital Signs Initial Vital Signs: Vital Signs Temperature 103.0 F H 11/19/17 15:48 Pulse Rate 90 11/19/17 15:48 Respiratory Rate 15 11/19/17 15:48 Blood Pressure 151/54 H 11/19/17 15:48 Pulse Oximetry 95 11/19/17 15:48 Course <RAMEZ Wyman - Last Filed: 11/19/17 20:54> Orders Ordered: Discontinued Medications Acetaminophen (Tylenol) 650 mg PO Q6HR PRN PRN Reason: As Needed for Fever/Mild Pain Last Admin: 11/21/17 10:20 Dose: 650 mg Admin: 11/20/17 21:33 Dose: 650 mg Admin: 11/20/17 11:33 Dose: 650 mg Admin: 11/20/17 03:56 Dose: 650 mg Azithromycin (Zithromax) 500 mg PO DAILY [facility] Last Admin: 11/21/17 10:19 Dose: 500 mg Cefuroxime Axetil (Ceftin) 500 mg PO BID [facility] Last Admin: 11/21/17 10:19 Dose: 500 mg Guaifenesin/Dextromethorphan (Robitussin Dm Syrup) 10 ml PO Q4H PRN PRN Reason: Cough Guaifenesin/Dextromethorphan (Guaifenesin Dm Syrup) 10 ml PO Q4H PRN PRN Reason: Cough Last Admin: 11/21/17 14:40 Dose: 10 ml Admin: 11/21/17 10:20 Dose: 10 ml Admin: 11/21/17 06:05 Dose: 10 ml Admin: 11/20/17 23:49 Dose: 10 ml Admin: 11/20/17 19:45 Dose: 10 ml Sodium Chloride (Normal Saline 0.9%) 1,000 mls @ 1,000 mls/hr IV BOLUS ONE Stop: 11/19/17 17:05 Last Infusion: 11/19/17 17:20 Dose: 0 mls/hr Admin: 11/19/17 16:16 Dose: 1,000 mls/hr Ceftriaxone Sodium/Dextrose (Rocephin) 1 gm in 50 mls @ 100 mls/hr IV NOW ONE Stop: 11/19/17 17:30 Last Infusion: 11/19/17 17:47 Dose: 0 mls/hr Admin: 11/19/17 17:21 Dose: 100 mls/hr Azithromycin 500 mg/ Dextrose 250 mls @ 250 mls/hr IV NOW ONE Stop: 11/19/17 17:14 Last Infusion: 11/19/17 18:56 Dose: 0 mls/hr Admin: 11/19/17 17:50 Dose: 250 mls/hr Azithromycin 500 mg/ Dextrose 250 mls @ 250 mls/hr IV 1800 JUAN Last Infusion: 11/20/17 19:45 Dose: 250 mls/hr Admin: 11/20/17 18:35 Dose: 250 mls/hr Sodium Chloride (Normal Saline 0.9%) 1,000 mls @ 100 mls/hr IV CONT JUAN Stop: 11/20/17 05:29 Last Admin: 11/20/17 01:30 Dose: 100 mls/hr Admin: 11/19/17 20:10 Dose: Ceftriaxone Sodium/Dextrose (Rocephin) 1 gm in 50 mls @ 100 mls/hr IV 1700 JUAN Last Infusion: 11/20/17 18:38 Dose: 100 mls/hr Admin: 11/20/17 17:30 Dose: 100 mls/hr Ketorolac Tromethamine (Toradol) 30 mg IV NOW ONE Stop: 11/19/17 16:07 Last Admin: 11/19/17 16:17 Dose: 30 mg Levothyroxine Sodium (Synthroid) 75 mcg PO 0600 [facility] Last Admin: 11/21/17 06:05 Dose: 75 mcg Admin: 11/20/17 05:36 Dose: 75 mcg Magnesium Hydroxide (Milk Of Magnesia) 30 ml PO DAILY PRN PRN Reason: Constipation Potassium Chloride (Klor-Con M20) 40 meq PO NOW ONE Stop: 11/21/17 07:57 Last Admin: 11/21/17 08:56 Dose: 40 meq Potassium Chloride (Klor-Con M20) 40 meq PO BIDWM [facility] Last Admin: 11/21/17 15:02 Dose: 40 meq Vital Signs - 8 hr 11/19/17 15:48 11/19/17 17:05 11/19/17 17:19 Temperature 103.0 F H 101.3 F H Pulse Rate 90 79 Respiratory Rate 15 16 Blood Pressure 151/54 H Blood Pressure [Left Arm] 113/50 L Pulse Oximetry 95 94 11/19/17 17:30 11/19/17 18:50 11/19/17 20:05 Temperature 98.8 F 98.4 F Pulse Rate 75 71 71 Respiratory Rate 14 18 Blood Pressure 114/61 Blood Pressure [Left Arm] 106/47 L 98/52 L Pulse Oximetry 95 95 95 <Ritchie Sawyer DO - Last Filed: 11/22/17 08:38> Orders Ordered: Discontinued Medications Acetaminophen (Tylenol) 650 mg PO Q6HR PRN PRN Reason: As Needed for Fever/Mild Pain Last Admin: 11/21/17 10:20 Dose: 650 mg Admin: 11/20/17 21:33 Dose: 650 mg Admin: 11/20/17 11:33 Dose: 650 mg Admin: 11/20/17 03:56 Dose: 650 mg Azithromycin (Zithromax) 500 mg PO DAILY [facility] Last Admin: 11/21/17 10:19 Dose: 500 mg Cefuroxime Axetil (Ceftin) 500 mg PO BID [facility] Last Admin: 11/21/17 10:19 Dose: 500 mg Guaifenesin/Dextromethorphan (Robitussin Dm Syrup) 10 ml PO Q4H PRN PRN Reason: Cough Guaifenesin/Dextromethorphan (Guaifenesin Dm Syrup) 10 ml PO Q4H PRN PRN Reason: Cough Last Admin: 11/21/17 14:40 Dose: 10 ml Admin: 11/21/17 10:20 Dose: 10 ml Admin: 11/21/17 06:05 Dose: 10 ml Admin: 11/20/17 23:49 Dose: 10 ml Admin: 11/20/17 19:45 Dose: 10 ml Sodium Chloride (Normal Saline 0.9%) 1,000 mls @ 1,000 mls/hr IV BOLUS ONE Stop: 11/19/17 17:05 Last Infusion: 11/19/17 17:20 Dose: 0 mls/hr Admin: 11/19/17 16:16 Dose: 1,000 mls/hr Ceftriaxone Sodium/Dextrose (Rocephin) 1 gm in 50 mls @ 100 mls/hr IV NOW ONE Stop: 11/19/17 17:30 Last Infusion: 11/19/17 17:47 Dose: 0 mls/hr Admin: 11/19/17 17:21 Dose: 100 mls/hr Azithromycin 500 mg/ Dextrose 250 mls @ 250 mls/hr IV NOW ONE Stop: 11/19/17 17:14 Last Infusion: 11/19/17 18:56 Dose: 0 mls/hr Admin: 11/19/17 17:50 Dose: 250 mls/hr Azithromycin 500 mg/ Dextrose 250 mls @ 250 mls/hr IV 1800 JUAN Last Infusion: 11/20/17 19:45 Dose: 250 mls/hr Admin: 11/20/17 18:35 Dose: 250 mls/hr Sodium Chloride (Normal Saline 0.9%) 1,000 mls @ 100 mls/hr IV CONT JUAN Stop: 11/20/17 05:29 Last Admin: 11/20/17 01:30 Dose: 100 mls/hr Admin: 11/19/17 20:10 Dose: Ceftriaxone Sodium/Dextrose (Rocephin) 1 gm in 50 mls @ 100 mls/hr IV 1700 JUAN Last Infusion: 11/20/17 18:38 Dose: 100 mls/hr Admin: 11/20/17 17:30 Dose: 100 mls/hr Ketorolac Tromethamine (Toradol) 30 mg IV NOW ONE Stop: 11/19/17 16:07 Last Admin: 11/19/17 16:17 Dose: 30 mg Levothyroxine Sodium (Synthroid) 75 mcg PO 0600 JUAN Last Admin: 11/21/17 06:05 Dose: 75 mcg Admin: 11/20/17 05:36 Dose: 75 mcg Magnesium Hydroxide (Milk Of Magnesia) 30 ml PO DAILY PRN PRN Reason: Constipation Potassium Chloride (Klor-Con M20) 40 meq PO NOW ONE Stop: 11/21/17 07:57 Last Admin: 11/21/17 08:56 Dose: 40 meq Potassium Chloride (Klor-Con M20) 40 meq PO BIDWM JUAN Last Admin: 11/21/17 15:02 Dose: 40 meq Vital Signs - 8 hr 11/19/17 15:48 11/19/17 17:05 11/19/17 17:19 Temperature 103.0 F H 101.3 F H Pulse Rate 90 79 Respiratory Rate 15 16 Blood Pressure 151/54 H Blood Pressure [Left Arm] 113/50 L Pulse Oximetry 95 94 11/19/17 17:30 11/19/17 18:50 11/19/17 20:05 Temperature 98.8 F 98.4 F Pulse Rate 75 71 71 Respiratory Rate 14 18 Blood Pressure 114/61 Blood Pressure [Left Arm] 106/47 L 98/52 L Pulse Oximetry 95 95 95 MDM - Female Genitourinary <RAMEZ Wyman - Last Filed: 11/19/17 20:54> Lab Data Result diagrams: 11/21/17 05:03 11/21/17 05:03 Lab Results 11/19/17 11/19/17 11/19/17 Range/Units 15:45 15:54 15:54 WBC 12.7 H (4.5-11.0) X10^3/uL RBC 3.65 L (4.0-5.2) X10^6/uL Hgb 11.4 L (12.0-16.0) g/dL Hct 31.1 L (36-46) % MCV 85.1 (80-100) fL MCH 31.2 (26-34) PG MCHC 36.7 H (30-36) % RDW 13.4 (11.6-14.8) % Plt Count 157 (150-400) X10^3/uL Neut % (Auto) 85.0 H (50-75) % Lymph % (Auto) 5.2 L (25-40) % [place] % (Auto) 9.5 (3-14) % Eos % (Auto) 0.0 L (2-4) % Baso % (Auto) 0.3 (0-2) % Neut # (Auto) 61463 H (0939-4855) /uL RBC Morphology Poikilocytosis Spherocytes Sodium (137-145) mmol/L Potassium (3.4-5.1) mmol/L Chloride (98-107) mmol/L Carbon Dioxide (22-32) mmol/L BUN (7-17) mg/dL Creatinine (0.52-1.04) mg/dL Estimated GFR (>60) mL/min BUN/Creatinine Ratio (6-22) Glucose (80-110) mg/dL Lactate (0.7-2.1) mmol/L Calcium (8.4-10.2) mg/dL Iron (37-170) ug/dL TIBC (265-497) ug/dL % Saturation (15-50) % Transferrin (206-381) mg/dL Ferritin (11.1-264) ng/mL Total Bilirubin (0.2-1.3) mg/dL AST (14-36) IU/L ALT (9-52) IU/L Alkaline Phosphatase (38-126) U/L Total Protein (6.3-8.2) g/dL Albumin (3.5-5.0) g/dL Globulin (1.7-4.1) g/dL Albumin/Globulin Ratio (1.0-2.8) Procalcitonin 1.06 H (<0.5) ng/mL Urine Color Yellow Urine Appearance Sl cloudy Urine pH 6.0 (4.5-8.0) Ur Specific [place] 1.020 (1.000-1.035) Urine Protein 2+ H (Negative) Urine Glucose (UA) Negative (Normal) g/dL Urine Ketones 1+ H (NEGATIVE) Urine Occult Blood 2+ H (Negative) Urine Nitrate Negative (Negative) Urine Bilirubin Negative (NEGATIVE) Urine Urobilinogen 0.2 (0.2) E.U./dL Ur Leukocyte Esterase Trace H (NEGATIVE) Urine RBC 0-1/hpf (0-5/HPF) Urine WBC 30-100/hpf H (0-5/HPF) Ur Squamous Epith Cells 0-1 /hpf Ur Transition Epith Cell 0-1/hpf (0-5/HPF) Ur Renal Epithelial Cell 0-1/hpf Urine Bacteria Moderate (10-30) H (None) Ur Culture Indicated? Specimen cultured Micro UA Comment Not Reportable Influenza A & B (PCR) (Negative) 11/19/17 11/19/17 11/19/17 Range/Units 15:54 15:54 15:54 WBC (4.5-11.0) X10^3/uL RBC (4.0-5.2) X10^6/uL Hgb (12.0-16.0) g/dL Hct (36-46) % MCV (80-100) fL MCH (26-34) PG MCHC (30-36) % RDW (11.6-14.8) % Plt Count (150-400) X10^3/uL Neut % (Auto) (50-75) % Lymph % (Auto) (25-40) % [place] % (Auto) (3-14) % Eos % (Auto) (2-4) % Baso % (Auto) (0-2) % Neut # (Auto) (1488-3317) /uL RBC Morphology Poikilocytosis Spherocytes Sodium 129 L (137-145) mmol/L Potassium 3.8 (3.4-5.1) mmol/L Chloride 91 L (98-107) mmol/L Carbon Dioxide 24 (22-32) mmol/L BUN 21 H (7-17) mg/dL Creatinine 0.80 (0.52-1.04) mg/dL Estimated GFR > 60.0 (>60) mL/min BUN/Creatinine Ratio 26.3 H (6-22) Glucose 117 H (80-110) mg/dL Lactate 1.1 (0.7-2.1) mmol/L Calcium 8.6 (8.4-10.2) mg/dL Iron (37-170) ug/dL TIBC (265-497) ug/dL % Saturation (15-50) % Transferrin (206-381) mg/dL Ferritin 694.0 H (11.1-264) ng/mL Total Bilirubin 0.9 (0.2-1.3) mg/dL AST 56 H (14-36) IU/L ALT 73 H (9-52) IU/L Alkaline Phosphatase 160 H (38-126) U/L Total Protein 6.9 (6.3-8.2) g/dL Albumin 3.7 (3.5-5.0) g/dL Globulin 3.2 (1.7-4.1) g/dL Albumin/Globulin Ratio 1.2 (1.0-2.8) Procalcitonin (<0.5) ng/mL Urine Color Urine Appearance Urine pH (4.5-8.0) Ur Specific [place] (1.000-1.035) Urine Protein (Negative) Urine Glucose (UA) (Normal) g/dL Urine Ketones (NEGATIVE) Urine Occult Blood (Negative) Urine Nitrate (Negative) Urine Bilirubin (NEGATIVE) Urine Urobilinogen (0.2) E.U./dL Ur Leukocyte Esterase (NEGATIVE) Urine RBC (0-5/HPF) Urine WBC (0-5/HPF) Ur Squamous Epith Cells Ur Transition Epith Cell (0-5/HPF) Ur Renal Epithelial Cell Urine Bacteria (None) Ur Culture Indicated? Micro UA Comment Influenza A & B (PCR) (Negative) 11/19/17 11/19/17 11/20/17 Range/Units 15:54 16:08 05:10 WBC 9.2 (4.5-11.0) X10^3/uL RBC 3.16 L (4.0-5.2) X10^6/uL Hgb 9.9 L (12.0-16.0) g/dL Hct 26.6 L (36-46) % MCV 84.4 (80-100) fL MCH 31.4 (26-34) PG MCHC 37.2 H (30-36) % RDW 13.7 (11.6-14.8) % Plt Count 137 L (150-400) X10^3/uL Neut % (Auto) 85.1 H (50-75) % Lymph % (Auto) 4.8 L (25-40) % [place] % (Auto) 9.7 (3-14) % Eos % (Auto) 0.1 L (2-4) % Baso % (Auto) 0.3 (0-2) % Neut # (Auto) 7800 H (4996-4781) /uL RBC Morphology Not Reportable Poikilocytosis 1+ H Spherocytes Sodium (137-145) mmol/L Potassium (3.4-5.1) mmol/L Chloride (98-107) mmol/L Carbon Dioxide (22-32) mmol/L BUN (7-17) mg/dL Creatinine (0.52-1.04) mg/dL Estimated GFR (>60) mL/min BUN/Creatinine Ratio (6-22) Glucose (80-110) mg/dL Lactate (0.7-2.1) mmol/L Calcium (8.4-10.2) mg/dL Iron 21 L (37-170) ug/dL TIBC 326 (265-497) ug/dL % Saturation 6 L (15-50) % Transferrin 157 L (206-381) mg/dL Ferritin (11.1-264) ng/mL Total Bilirubin (0.2-1.3) mg/dL AST (14-36) IU/L ALT (9-52) IU/L Alkaline Phosphatase (38-126) U/L Total Protein (6.3-8.2) g/dL Albumin (3.5-5.0) g/dL Globulin (1.7-4.1) g/dL Albumin/Globulin Ratio (1.0-2.8) Procalcitonin (<0.5) ng/mL Urine Color Urine Appearance Urine pH (4.5-8.0) Ur Specific [place] (1.000-1.035) Urine Protein (Negative) Urine Glucose (UA) (Normal) g/dL Urine Ketones (NEGATIVE) Urine Occult Blood (Negative) Urine Nitrate (Negative) Urine Bilirubin (NEGATIVE) Urine Urobilinogen (0.2) E.U./dL Ur Leukocyte Esterase (NEGATIVE) Urine RBC (0-5/HPF) Urine WBC (0-5/HPF) Ur Squamous Epith Cells Ur Transition Epith Cell (0-5/HPF) Ur Renal Epithelial Cell Urine Bacteria (None) Ur Culture Indicated? Micro UA Comment Influenza A & B (PCR) Negative (Negative) 11/21/17 11/21/17 Range/Units 05:03 05:03 WBC 9.4 (4.5-11.0) X10^3/uL RBC 3.43 L (4.0-5.2) X10^6/uL Hgb 10.7 L (12.0-16.0) g/dL Hct 29.1 L (36-46) % MCV 85.0 (80-100) fL MCH 31.4 (26-34) PG MCHC 36.9 H (30-36) % RDW 13.5 (11.6-14.8) % Plt Count 165 (150-400) X10^3/uL Neut % (Auto) 76.5 H (50-75) % Lymph % (Auto) 11.8 L (25-40) % [place] % (Auto) 10.4 (3-14) % Eos % (Auto) 0.7 L (2-4) % Baso % (Auto) 0.6 (0-2) % Neut # (Auto) 7200 H (0531-6353) /uL RBC Morphology Not Reportable Poikilocytosis 1+ H Spherocytes 1+ H Sodium 134 L (137-145) mmol/L Potassium 3.0 L (3.4-5.1) mmol/L Chloride 98 (98-107) mmol/L Carbon Dioxide 27 (22-32) mmol/L BUN 8 (7-17) mg/dL Creatinine 0.60 (0.52-1.04) mg/dL Estimated GFR > 60.0 (>60) mL/min BUN/Creatinine Ratio 13.3 (6-22) Glucose 98 (80-110) mg/dL Lactate (0.7-2.1) mmol/L Calcium 8.4 (8.4-10.2) mg/dL Iron (37-170) ug/dL TIBC (265-497) ug/dL % Saturation (15-50) % Transferrin (206-381) mg/dL Ferritin (11.1-264) ng/mL Total Bilirubin (0.2-1.3) mg/dL AST (14-36) IU/L ALT (9-52) IU/L Alkaline Phosphatase (38-126) U/L Total Protein (6.3-8.2) g/dL Albumin (3.5-5.0) g/dL Globulin (1.7-4.1) g/dL Albumin/Globulin Ratio (1.0-2.8) Procalcitonin (<0.5) ng/mL Urine Color Urine Appearance Urine pH (4.5-8.0) Ur Specific [place] (1.000-1.035) Urine Protein (Negative) Urine Glucose (UA) (Normal) g/dL Urine Ketones (NEGATIVE) Urine Occult Blood (Negative) Urine Nitrate (Negative) Urine Bilirubin (NEGATIVE) Urine Urobilinogen (0.2) E.U./dL Ur Leukocyte Esterase (NEGATIVE) Urine RBC (0-5/HPF) Urine WBC (0-5/HPF) Ur Squamous Epith Cells Ur Transition Epith Cell (0-5/HPF) Ur Renal Epithelial Cell Urine Bacteria (None) Ur Culture Indicated? Micro UA Comment Influenza A & B (PCR) (Negative) Imaging Data Chest x-ray: Radiologist's impression: PROCEDURE: XR CHEST 2V INDICATIONS: Fever TECHNIQUE: 2 views of the chest were acquired. COMPARISON: None. FINDINGS: Surgical changes and devices: None. Lungs and pleura: No pleural effusions or pneumothorax. Pulmonary consolidation is present in the posterolateral right lower lobe consistent with pneumonia. Mediastinum: Mediastinal contours are normal. Heart size is normal. Bones and chest wall: No suspicious bony abnormalities. Scoliosis. Soft tissues appear unremarkable. IMPRESSION: Right lower lobe pneumonia Dictated by: Ishan Peck M.D. on 11/19/2017 at 16:49 Approved by: Ishan Peck M.D. on 11/19/2017 at 16:50 MDM Narrative Medical decision making narrative: CBC shows elevated white count. Lactate was negative. Procalcitonin was slightly elevated. Urinalysis indicates urinary tract infection. Chest x-ray was obtained shows right lower lobe pneumonia. Patient states she felt better after getting fluids in the emergency room and also Toradol. Blood cultures are obtained and pending. Urine culture is pending. Discussed case with Dr. Esquivel hospitalist for admission for IV antibiotics and he accepted patient. Patient was given Rocephin IV and azithromycin in the emergency room. Patient is admitted to inpatient services for further care and treatment. <Ritchie Sawyer, - Last Filed: 11/22/17 08:38> Lab Data Lab Results 11/19/17 11/19/17 11/19/17 Range/Units 15:45 15:54 15:54 WBC 12.7 H (4.5-11.0) X10^3/uL RBC 3.65 L (4.0-5.2) X10^6/uL Hgb 11.4 L (12.0-16.0) g/dL Hct 31.1 L (36-46) % MCV 85.1 (80-100) fL MCH 31.2 (26-34) PG MCHC 36.7 H (30-36) % RDW 13.4 (11.6-14.8) % Plt Count 157 (150-400) X10^3/uL Neut % (Auto) 85.0 H (50-75) % Lymph % (Auto) 5.2 L (25-40) % [place] % (Auto) 9.5 (3-14) % Eos % (Auto) 0.0 L (2-4) % Baso % (Auto) 0.3 (0-2) % Neut # (Auto) 49846 H (4944-5298) /uL RBC Morphology Poikilocytosis Spherocytes Sodium (137-145) mmol/L Potassium (3.4-5.1) mmol/L Chloride (98-107) mmol/L Carbon Dioxide (22-32) mmol/L BUN (7-17) mg/dL Creatinine (0.52-1.04) mg/dL Estimated GFR (>60) mL/min BUN/Creatinine Ratio (6-22) Glucose (80-110) mg/dL Lactate (0.7-2.1) mmol/L Calcium (8.4-10.2) mg/dL Iron (37-170) ug/dL TIBC (265-497) ug/dL % Saturation (15-50) % Transferrin (206-381) mg/dL Ferritin (11.1-264) ng/mL Total Bilirubin (0.2-1.3) mg/dL AST (14-36) IU/L ALT (9-52) IU/L Alkaline Phosphatase (38-126) U/L Total Protein (6.3-8.2) g/dL Albumin (3.5-5.0) g/dL Globulin (1.7-4.1) g/dL Albumin/Globulin Ratio (1.0-2.8) Procalcitonin 1.06 H (<0.5) ng/mL Urine Color Yellow Urine Appearance Sl cloudy Urine pH 6.0 (4.5-8.0) Ur Specific [place] 1.020 (1.000-1.035) Urine Protein 2+ H (Negative) Urine Glucose (UA) Negative (Normal) g/dL Urine Ketones 1+ H (NEGATIVE) Urine Occult Blood 2+ H (Negative) Urine Nitrate Negative (Negative) Urine Bilirubin Negative (NEGATIVE) Urine Urobilinogen 0.2 (0.2) E.U./dL Ur Leukocyte Esterase Trace H (NEGATIVE) Urine RBC 0-1/hpf (0-5/HPF) Urine WBC 30-100/hpf H (0-5/HPF) Ur Squamous Epith Cells 0-1 /hpf Ur Transition Epith Cell 0-1/hpf (0-5/HPF) Ur Renal Epithelial Cell 0-1/hpf Urine Bacteria Moderate (10-30) H (None) Ur Culture Indicated? Specimen cultured Micro UA Comment Not Reportable Influenza A & B (PCR) (Negative) 11/19/17 11/19/17 11/19/17 Range/Units 15:54 15:54 15:54 WBC (4.5-11.0) X10^3/uL RBC (4.0-5.2) X10^6/uL Hgb (12.0-16.0) g/dL Hct (36-46) % MCV (80-100) fL MCH (26-34) PG MCHC (30-36) % RDW (11.6-14.8) % Plt Count (150-400) X10^3/uL Neut % (Auto) (50-75) % Lymph % (Auto) (25-40) % [place] % (Auto) (3-14) % Eos % (Auto) (2-4) % Baso % (Auto) (0-2) % Neut # (Auto) (0403-1921) /uL RBC Morphology Poikilocytosis Spherocytes Sodium 129 L (137-145) mmol/L Potassium 3.8 (3.4-5.1) mmol/L Chloride 91 L (98-107) mmol/L Carbon Dioxide 24 (22-32) mmol/L BUN 21 H (7-17) mg/dL Creatinine 0.80 (0.52-1.04) mg/dL Estimated GFR > 60.0 (>60) mL/min BUN/Creatinine Ratio 26.3 H (6-22) Glucose 117 H (80-110) mg/dL Lactate 1.1 (0.7-2.1) mmol/L Calcium 8.6 (8.4-10.2) mg/dL Iron (37-170) ug/dL TIBC (265-497) ug/dL % Saturation (15-50) % Transferrin (206-381) mg/dL Ferritin 694.0 H (11.1-264) ng/mL Total Bilirubin 0.9 (0.2-1.3) mg/dL AST 56 H (14-36) IU/L ALT 73 H (9-52) IU/L Alkaline Phosphatase 160 H (38-126) U/L Total Protein 6.9 (6.3-8.2) g/dL Albumin 3.7 (3.5-5.0) g/dL Globulin 3.2 (1.7-4.1) g/dL Albumin/Globulin Ratio 1.2 (1.0-2.8) Procalcitonin (<0.5) ng/mL Urine Color Urine Appearance Urine pH (4.5-8.0) Ur Specific [place] (1.000-1.035) Urine Protein (Negative) Urine Glucose (UA) (Normal) g/dL Urine Ketones (NEGATIVE) Urine Occult Blood (Negative) Urine Nitrate (Negative) Urine Bilirubin (NEGATIVE) Urine Urobilinogen (0.2) E.U./dL Ur Leukocyte Esterase (NEGATIVE) Urine RBC (0-5/HPF) Urine WBC (0-5/HPF) Ur Squamous Epith Cells Ur Transition Epith Cell (0-5/HPF) Ur Renal Epithelial Cell Urine Bacteria (None) Ur Culture Indicated? Micro UA Comment Influenza A & B (PCR) (Negative) 11/19/17 11/19/17 11/20/17 Range/Units 15:54 16:08 05:10 WBC 9.2 (4.5-11.0) X10^3/uL RBC 3.16 L (4.0-5.2) X10^6/uL Hgb 9.9 L (12.0-16.0) g/dL Hct 26.6 L (36-46) % MCV 84.4 (80-100) fL MCH 31.4 (26-34) PG MCHC 37.2 H (30-36) % RDW 13.7 (11.6-14.8) % Plt Count 137 L (150-400) X10^3/uL Neut % (Auto) 85.1 H (50-75) % Lymph % (Auto) 4.8 L (25-40) % [place] % (Auto) 9.7 (3-14) % Eos % (Auto) 0.1 L (2-4) % Baso % (Auto) 0.3 (0-2) % Neut # (Auto) 7800 H (9548-1605) /uL RBC Morphology Not Reportable Poikilocytosis 1+ H Spherocytes Sodium (137-145) mmol/L Potassium (3.4-5.1) mmol/L Chloride (98-107) mmol/L Carbon Dioxide (22-32) mmol/L BUN (7-17) mg/dL Creatinine (0.52-1.04) mg/dL Estimated GFR (>60) mL/min BUN/Creatinine Ratio (6-22) Glucose (80-110) mg/dL Lactate (0.7-2.1) mmol/L Calcium (8.4-10.2) mg/dL Iron 21 L (37-170) ug/dL TIBC 326 (265-497) ug/dL % Saturation 6 L (15-50) % Transferrin 157 L (206-381) mg/dL Ferritin (11.1-264) ng/mL Total Bilirubin (0.2-1.3) mg/dL AST (14-36) IU/L ALT (9-52) IU/L Alkaline Phosphatase (38-126) U/L Total Protein (6.3-8.2) g/dL Albumin (3.5-5.0) g/dL Globulin (1.7-4.1) g/dL Albumin/Globulin Ratio (1.0-2.8) Procalcitonin (<0.5) ng/mL Urine Color Urine Appearance Urine pH (4.5-8.0) Ur Specific [place] (1.000-1.035) Urine Protein (Negative) Urine Glucose (UA) (Normal) g/dL Urine Ketones (NEGATIVE) Urine Occult Blood (Negative) Urine Nitrate (Negative) Urine Bilirubin (NEGATIVE) Urine Urobilinogen (0.2) E.U./dL Ur Leukocyte Esterase (NEGATIVE) Urine RBC (0-5/HPF) Urine WBC (0-5/HPF) Ur Squamous Epith Cells Ur Transition Epith Cell (0-5/HPF) Ur Renal Epithelial Cell Urine Bacteria (None) Ur Culture Indicated? Micro UA Comment Influenza A & B (PCR) Negative (Negative) 11/21/17 11/21/17 Range/Units 05:03 05:03 WBC 9.4 (4.5-11.0) X10^3/uL RBC 3.43 L (4.0-5.2) X10^6/uL Hgb 10.7 L (12.0-16.0) g/dL Hct 29.1 L (36-46) % MCV 85.0 (80-100) fL MCH 31.4 (26-34) PG MCHC 36.9 H (30-36) % RDW 13.5 (11.6-14.8) % Plt Count 165 (150-400) X10^3/uL Neut % (Auto) 76.5 H (50-75) % Lymph % (Auto) 11.8 L (25-40) % [place] % (Auto) 10.4 (3-14) % Eos % (Auto) 0.7 L (2-4) % Baso % (Auto) 0.6 (0-2) % Neut # (Auto) 7200 H (0159-5920) /uL RBC Morphology Not Reportable Poikilocytosis 1+ H Spherocytes 1+ H Sodium 134 L (137-145) mmol/L Potassium 3.0 L (3.4-5.1) mmol/L Chloride 98 (98-107) mmol/L Carbon Dioxide 27 (22-32) mmol/L BUN 8 (7-17) mg/dL Creatinine 0.60 (0.52-1.04) mg/dL Estimated GFR > 60.0 (>60) mL/min BUN/Creatinine Ratio 13.3 (6-22) Glucose 98 (80-110) mg/dL Lactate (0.7-2.1) mmol/L Calcium 8.4 (8.4-10.2) mg/dL Iron (37-170) ug/dL TIBC (265-497) ug/dL % Saturation (15-50) % Transferrin (206-381) mg/dL Ferritin (11.1-264) ng/mL Total Bilirubin (0.2-1.3) mg/dL AST (14-36) IU/L ALT (9-52) IU/L Alkaline Phosphatase (38-126) U/L Total Protein (6.3-8.2) g/dL Albumin (3.5-5.0) g/dL Globulin (1.7-4.1) g/dL Albumin/Globulin Ratio (1.0-2.8) Procalcitonin (<0.5) ng/mL Urine Color Urine Appearance Urine pH (4.5-8.0) Ur Specific [place] (1.000-1.035) Urine Protein (Negative) Urine Glucose (UA) (Normal) g/dL Urine Ketones (NEGATIVE) Urine Occult Blood (Negative) Urine Nitrate (Negative) Urine Bilirubin (NEGATIVE) Urine Urobilinogen (0.2) E.U./dL Ur Leukocyte Esterase (NEGATIVE) Urine RBC (0-5/HPF) Urine WBC (0-5/HPF) Ur Squamous Epith Cells Ur Transition Epith Cell (0-5/HPF) Ur Renal Epithelial Cell Urine Bacteria (None) Ur Culture Indicated? Micro UA Comment Influenza A & B (PCR) (Negative) Discharge Plan Departure Patient Disposition: Admitted As Inpatient Clinical Impression: Community acquired pneumonia, Urinary tract infection Discharge Date/Time: 11/19/17 19:10 Interventions: ED Discharge Assessment Last Done: 11/19/17 18:45 Admit Date/Time: 11/19/17 19:22 Admit Provider: Archie Esquivel <Ritchie Sawyer DO - Last Filed: 11/22/17 08:38> Cosign ED Attending Cospeaceature Attestation: I was available for consultation during this patient's emergency department encounter
[2017-11-19] MEDS: CEFTRIAXONE 1 GM/50 ML FROZ.PIGGY IV (17:21)
[2017-11-19] MEDS: AZITHROMYCIN 500 MG in DEXTROSE 5% IN WATER 250 ML IV (17:50)
--- NOTE | 2017-11-19 19:40 | P.HP_ITS ---
History of Present Illness Date Patient Seen: 11/19/17 Time Patient Seen: 19:29 Chief complaint: UTI Narrative: Patient is a 77-year-old female patient of Ayah Menendez in generally good health presents emergency department due to increasing weakness, loss of appetite, fever and chills. Symptoms started 5-6 days ago. She was seen in the clinic on November 17 and prescribed cephalexin for possible UTI. Urine culture was sent but no record of culture result in chart yet. Patient has also had a mild cough and reports watery stools. She came into the emergency department due to increasing weakness. No chest pain or shortness of breath. Patient was noted to have temp of 103? in the ER. Patient History Medical History Degenerative disc disease (Acute) Hyperlipidemia (Acute) Hypothyroidism (Acute) Family & Social History Tobacco & Substance use: Smoking Status Never smoker Meds Home Medications Medication Instructions Recorded Confirmed Type Centrum Silver 1 tab PO DAILY 11/19/17 11/19/17 History acetaminophen 500 mg PO Q4H PRN 11/19/17 11/19/17 History ascorbic acid (vitamin C) [Vitamin 1 tab PO DAILY 11/19/17 11/19/17 History C] aspirin 81 mg PO DAILY 11/19/17 11/19/17 History calcium carbonate [Calcium 600] 1 tab PO DAILYCC 11/19/17 11/19/17 History cephalexin 500 mg PO Q12H 11/19/17 11/19/17 History cholecalciferol (vitamin D3) 2,000 unit PO DAILY 11/19/17 11/19/17 History [Vitamin D3] cyanocobalamin (vitamin B-12) 2,000 mcg PO DAILY 11/19/17 11/19/17 History [Vitamin B-12] diclofenac sodium 1 applic TOPICAL Q8H PRN 11/19/17 11/19/17 History levothyroxine 1.5 tab PO WEEKLY 11/19/17 11/19/17 History levothyroxine 75 mcg PO DAILY 11/19/17 11/19/17 History omega 3-uyu-cza-fish oil [Fish Oil] 1 cap PO DAILY 11/19/17 11/19/17 History Allergies Allergy/AdvReac Type Severity Reaction Status Date / Time No Known Drug Allergies Allergy Verified 11/19/17 15:48 Review of Systems Review of Systems All systems reviewed & are unremarkable except as noted in HPI and below Exam Vital Signs (past 8 hours): - 11/19/17 15:48 11/19/17 17:05 11/19/17 17:19 Temperature 103.0 F H 101.3 F H Pulse Rate 90 79 Respiratory Rate 15 16 Blood Pressure 151/54 H Blood Pressure [Left Arm] 113/50 L Pulse Oximetry 95 94 11/19/17 17:30 11/19/17 18:50 Temperature 98.8 F Pulse Rate 75 71 Respiratory Rate 14 Blood Pressure Blood Pressure [Left Arm] 106/47 L 98/52 L Pulse Oximetry 95 95 Oxygen Delivery Method Room Air Narrative Exam Narrative: GENERAL: Alert cooperative female who appears weak and fatigued HEAD: Atraumatic. Normocephalic. EYES: Pupils equal, round and reactive. Extraocular motions intact. No scleral icterus. No injection or drainage. OROPHARYNX: Dry mucosa NECK: Trachea midline. No JVD or lymphadenopathy. CARDIOVASCULAR: Regular rate and rhythm without murmurs, gallops, or rubs. RESPIRATORY: Clear to auscultation bilaterally. GASTROINTESTINAL: Abdomen nondistended, soft, non-tender. No hepato- splenomegaly, or palpable masses. EXTREMITIES: No edema. NEUROLOGICAL: Alert, well oriented, speech is intact, normal bilateral upper and lower extremity strength SKIN: warm, dry, no rash Objective Labs Result Diagrams: 11/19/17 15:54 11/19/17 15:54 Labs: PROCEDURE: XR CHEST 2V INDICATIONS: Fever TECHNIQUE: 2 views of the chest were acquired. COMPARISON: None. FINDINGS: Surgical changes and devices: None. Lungs and pleura: No pleural effusions or pneumothorax. Pulmonary consolidation is present in the posterolateral right lower lobe consistent with pneumonia. Mediastinum: Mediastinal contours are normal. Heart size is normal. Bones and chest wall: No suspicious bony abnormalities. Scoliosis. Soft tissues appear unremarkable. IMPRESSION: Right lower lobe pneumonia Dictated by: Ishan Peck M.D. on 11/19/2017 at 16:49 Approved by: Ishan Peck M.D. on 11/19/2017 at 16:50 Laboratory Results - last 24 hr 11/19/17 11/19/17 11/19/17 15:45 15:54 15:54 WBC 12.7 H RBC 3.65 L Hgb 11.4 L Hct 31.1 L MCV 85.1 MCH 31.2 MCHC 36.7 H RDW 13.4 Plt Count 157 Neut % (Auto) 85.0 H Lymph % (Auto) 5.2 L [place] % (Auto) 9.5 Eos % (Auto) 0.0 L Baso % (Auto) 0.3 Neut # (Auto) 72117 H Sodium Potassium Chloride Carbon Dioxide BUN Creatinine Estimated GFR BUN/Creatinine Ratio Glucose Lactate Calcium Total Bilirubin AST ALT Alkaline Phosphatase Total Protein Albumin Globulin Albumin/Globulin Ratio Procalcitonin 1.06 H Urine Color Yellow Urine Appearance Sl cloudy Urine pH 6.0 Ur Specific [place] 1.020 Urine Protein 2+ H Urine Glucose (UA) Negative Urine Ketones 1+ H Urine Occult Blood 2+ H Urine Nitrate Negative Urine Bilirubin Negative Urine Urobilinogen 0.2 Ur Leukocyte Esterase Trace H Urine RBC 0-1/hpf Urine WBC 30-100/hpf H Ur Squamous Epith Cells 0-1 /hpf Ur Transition Epith Cell 0-1/hpf Ur Renal Epithelial Cell 0-1/hpf Urine Bacteria Moderate (10-30) H Ur Culture Indicated? Specimen cultured Micro UA Comment Not Reportable Influenza A & B (PCR) 11/19/17 11/19/17 11/19/17 15:54 15:54 16:08 WBC RBC Hgb Hct MCV MCH MCHC RDW Plt Count Neut % (Auto) Lymph % (Auto) [place] % (Auto) Eos % (Auto) Baso % (Auto) Neut # (Auto) Sodium 129 L Potassium 3.8 Chloride 91 L Carbon Dioxide 24 BUN 21 H Creatinine 0.80 Estimated GFR > 60.0 BUN/Creatinine Ratio 26.3 H Glucose 117 H Lactate 1.1 Calcium 8.6 Total Bilirubin 0.9 AST 56 H ALT 73 H Alkaline Phosphatase 160 H Total Protein 6.9 Albumin 3.7 Globulin 3.2 Albumin/Globulin Ratio 1.2 Procalcitonin Urine Color Urine Appearance Urine pH Ur Specific [place] Urine Protein Urine Glucose (UA) Urine Ketones Urine Occult Blood Urine Nitrate Urine Bilirubin Urine Urobilinogen Ur Leukocyte Esterase Urine RBC Urine WBC Ur Squamous Epith Cells Ur Transition Epith Cell Ur Renal Epithelial Cell Urine Bacteria Ur Culture Indicated? Micro UA Comment Influenza A & B (PCR) Negative Assessment & Plan Plan: Assessment/Plan Narrative: 1. Bacterial pneumonia. Patient presents with high fever, right lower lobe infiltrate, slight cough and mild diarrhea. WBC and procalcitonin both mildly elevated, sodium 129. Normal O2 sats. She is mildly hypotensive but not tachycardic. Presentation is overall consistent for community-acquired pneumonia. Plan: Rocephin 1 g Q 24, Zithromax 500 mg Q 24. IV hydration. 2. Anemia, new diagnosis. Hemoglobin 11.4 versus hemoglobin 13.3 on 2015. Anemia may be secondary to inflammatory block from acute illness. Also rule out iron deficiency, check iron profile and ferritin. Repeat CBC in a.m.. 3. Abnormal urinalysis. Doubt clinical UTI as she does not have any urinary symptoms. This is probably secondary to the pneumonia. 4. DVT prophylaxis. Lovenox withheld due to possible bleed with the anemia. 5. Disposition. Inpatient admit.
[2017-11-19 19:52] LABS: HEMOLYSIS < 15 (0-50); Iron 21 ug/dL (37-170)
[2017-11-19 20:03] LABS: Percent Iron Saturation 6 % (15-50); Total Iron Binding Capacity 326 ug/dL (265-497); Transferrin 157 mg/dL (206-381)
--- NOTE | 2017-11-19 21:30 | PC.NURSE ---
Pt arrived from the ER alert/oriented. Denies discomfort. Lungs w/course sound at R LL. SpO2 96% RA. Afebrile at this time. IVF infusing into the LFA via pump as per orders. Assisted to BR w/ SBA, Voided x 1. Call light w/in reach, bed alarm on for pt safety. Continue w/plan of care.
[2017-11-20] VITALS (11 sets, daily range): BP systolic 108–154; BP diastolic 54–68; PULSE 70–93; RESP 16–20; TEMP 36.4–37.8; O2SAT 91–98
[2017-11-20] MEDS: SODIUM CHLORIDE 0.9% 1,000 ML 100 ML IV (01:30)
[2017-11-20] MEDS: ACETAMINOPHEN 325 MG TABLET 650 MG PO ×3 (03:56→21:33)
[2017-11-20] MEDS: LEVOTHYROXINE 75 MCG TABLET PO (05:36)
--- NOTE | 2017-11-20 05:53 | PC.NURSE ---
pt a&ox3. non productive cough. pt reports back pain 5/10 and temp of 100.0, tylenol given, will continue to monitor. pt is [id number]. pt urinating ok. IVF. call light in reach. bed alarm active.
[2017-11-20 06:49] LABS: Basophils Percent Auto 0.3 % (0-2); Eosinophils Percent Auto 0.1 % (2-4); Hematocrit 26.6 % (36-46); Hemoglobin 9.9 g/dL (12.0-16.0); Lymphocytes Percent Auto 4.8 % (25-40); Mean Corpuscular HGB Conc 37.2 % (30-36); Mean Corpuscular Hemoglobin 31.4 PG (26-34); Mean Corpuscular Volume 84.4 fL (80-100); Monocytes Percent Auto 9.7 % (3-14); Neutrophils Absolute Auto 7800 /uL (3000-5900); Neutrophils Percent Auto 85.1 % (50-75); Platelet Count 137 X10^3/uL (150-400); Red Blood Cell Count 3.16 X10^6/uL (4.0-5.2); Red Cell Distribution Width 13.7 % (11.6-14.8); White Blood Cell Count 9.2 X10^3/uL (4.5-11.0)
[2017-11-20 07:40] LABS: Add Manual Diff / Slide Review SLIDE REVIEW
[2017-11-20 07:45] LABS: Poikilocytosis 1+
--- NOTE | 2017-11-20 10:58 | P.PN_ITS ---
Subjective Date Patient Seen: 11/20/17 Time Patient Seen: 10:55 Interval history: Feeling somewhat better this morning Exam Vital Signs (past 8 hours): - 11/20/17 03:56 11/20/17 05:15 11/20/17 06:44 Temperature 100.0 F H 100.0 F H 99.1 F Pulse Rate 93 H Respiratory Rate 16 Blood Pressure 130/54 H Pulse Oximetry 91 11/20/17 08:10 Temperature 98.2 F Pulse Rate 74 Respiratory Rate 16 Blood Pressure 108/54 L Pulse Oximetry 94 Oxygen Delivery Method Room Air Oxygen Flow Rate 0 Narrative Exam Narrative: Resting comfortably awake alert oriented Oropharynx clear Neck is supple no JVD Lungs some crackles in the bases Heart regular rhythm Abdomen soft nontender Lower extremities no edema Skin warm and dry Neuro exam unremarkable Objective Labs Result Diagrams: 11/20/17 05:10 11/19/17 15:54 Labs: Laboratory Results - last 24 hr 11/19/17 11/19/17 11/19/17 15:45 15:54 15:54 WBC 12.7 H RBC 3.65 L Hgb 11.4 L Hct 31.1 L MCV 85.1 MCH 31.2 MCHC 36.7 H RDW 13.4 Plt Count 157 Neut % (Auto) 85.0 H Lymph % (Auto) 5.2 L [place] % (Auto) 9.5 Eos % (Auto) 0.0 L Baso % (Auto) 0.3 Neut # (Auto) 91574 H RBC Morphology Poikilocytosis Sodium Potassium Chloride Carbon Dioxide BUN Creatinine Estimated GFR BUN/Creatinine Ratio Glucose Lactate Calcium Iron TIBC % Saturation Transferrin Ferritin Total Bilirubin AST ALT Alkaline Phosphatase Total Protein Albumin Globulin Albumin/Globulin Ratio Procalcitonin 1.06 H Urine Color Yellow Urine Appearance Sl cloudy Urine pH 6.0 Ur Specific [place] 1.020 Urine Protein 2+ H Urine Glucose (UA) Negative Urine Ketones 1+ H Urine Occult Blood 2+ H Urine Nitrate Negative Urine Bilirubin Negative Urine Urobilinogen 0.2 Ur Leukocyte Esterase Trace H Urine RBC 0-1/hpf Urine WBC 30-100/hpf H Ur Squamous Epith Cells 0-1 /hpf Ur Transition Epith Cell 0-1/hpf Ur Renal Epithelial Cell 0-1/hpf Urine Bacteria Moderate (10-30) H Ur Culture Indicated? Specimen cultured Micro UA Comment Not Reportable Influenza A & B (PCR) 11/19/17 11/19/17 11/19/17 15:54 15:54 15:54 WBC RBC Hgb Hct MCV MCH MCHC RDW Plt Count Neut % (Auto) Lymph % (Auto) [place] % (Auto) Eos % (Auto) Baso % (Auto) Neut # (Auto) RBC Morphology Poikilocytosis Sodium 129 L Potassium 3.8 Chloride 91 L Carbon Dioxide 24 BUN 21 H Creatinine 0.80 Estimated GFR > 60.0 BUN/Creatinine Ratio 26.3 H Glucose 117 H Lactate 1.1 Calcium 8.6 Iron TIBC % Saturation Transferrin Ferritin 694.0 H Total Bilirubin 0.9 AST 56 H ALT 73 H Alkaline Phosphatase 160 H Total Protein 6.9 Albumin 3.7 Globulin 3.2 Albumin/Globulin Ratio 1.2 Procalcitonin Urine Color Urine Appearance Urine pH Ur Specific [place] Urine Protein Urine Glucose (UA) Urine Ketones Urine Occult Blood Urine Nitrate Urine Bilirubin Urine Urobilinogen Ur Leukocyte Esterase Urine RBC Urine WBC Ur Squamous Epith Cells Ur Transition Epith Cell Ur Renal Epithelial Cell Urine Bacteria Ur Culture Indicated? Micro UA Comment Influenza A & B (PCR) 11/19/17 11/19/17 11/20/17 15:54 16:08 05:10 WBC 9.2 RBC 3.16 L Hgb 9.9 L Hct 26.6 L MCV 84.4 MCH 31.4 MCHC 37.2 H RDW 13.7 Plt Count 137 L Neut % (Auto) 85.1 H Lymph % (Auto) 4.8 L [place] % (Auto) 9.7 Eos % (Auto) 0.1 L Baso % (Auto) 0.3 Neut # (Auto) 7800 H RBC Morphology Not Reportable Poikilocytosis 1+ H Sodium Potassium Chloride Carbon Dioxide BUN Creatinine Estimated GFR BUN/Creatinine Ratio Glucose Lactate Calcium Iron 21 L TIBC 326 % Saturation 6 L Transferrin 157 L Ferritin Total Bilirubin AST ALT Alkaline Phosphatase Total Protein Albumin Globulin Albumin/Globulin Ratio Procalcitonin Urine Color Urine Appearance Urine pH Ur Specific [place] Urine Protein Urine Glucose (UA) Urine Ketones Urine Occult Blood Urine Nitrate Urine Bilirubin Urine Urobilinogen Ur Leukocyte Esterase Urine RBC Urine WBC Ur Squamous Epith Cells Ur Transition Epith Cell Ur Renal Epithelial Cell Urine Bacteria Ur Culture Indicated? Micro UA Comment Influenza A & B (PCR) Negative Assessment & Plan Plan: Assessment/Plan Narrative: 1. Bacterial pneumonia. Patient presents with high fever, right lower lobe infiltrate, slight cough and mild diarrhea. WBC and procalcitonin both mildly elevated, sodium 129. Normal O2 sats. She is mildly hypotensive but not tachycardic. Presentation is overall consistent for community-acquired pneumonia. Plan: Rocephin 1 g Q 24, Zithromax 500 mg Q 24. IV hydration. Doing well with current treatment plan to continue. Possibly discharge home tomorrow 2. Anemia, new diagnosis. Significant drop in her hematocrit now down to 26. No signs of active bleeding. No melena or hematochezia or hematemesis. Iron levels are low. Plan to recheck levels in the morning on her CBC and guaiac the stool. She probably would benefit from upper and lower GI at some point 3. Abnormal urinalysis. Doubt clinical UTI as she does not have any urinary symptoms. No growth from the urine 4. DVT prophylaxis. Lovenox withheld due to possible bleed with the anemia. 5. Disposition. Inpatient admit. Quality VTE Deep Vein Thrombosis/Pulmonary Embolism Present on Admission: No
--- NOTE | 2017-11-20 12:34 | CM.DANOTE ---
Discharge Planning/Care Management CM Discharge Assessment Start: 11/20/17 12:32 Freq: Status: Active Protocol: Document 11/20/17 12:32 (Rec: 11/20/17 12:34 [id number]) Discharge Planning Assessment History Provided By Patient Medical Record Has Patient been admitted in last 30 No days? Prior Living Arrangements House Household Members spouse Type of transporation used prior to Drives own vehicle admit Independent with ADL's Yes Is patient alert and oriented? 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 Review Status In Process Plan: Per MD possible discharge tomorrow. Patient is expecting to discharge home. No needs at this time. CM team available as needed.
[2017-11-20] MEDS: CEFTRIAXONE 1 GM/50 ML FROZ.PIGGY IV (17:30)
[2017-11-20] MEDS: AZITHROMYCIN 500 MG in DEXTROSE 5% IN WATER 250 ML IV (18:35)
[2017-11-20] MEDS: GUAIFENESIN/DM 200/20 MG/10 ML UDC PO ×2 (19:45→23:49)
--- NOTE | 2017-11-21 02:11 | PC.NURSE ---
Pt's sat was 88% while sleeping, put her in 2L NC 95%. denies chest pain or SOB. guiac-negative.
[2017-11-21 04:43] VITALS: BP 122/59; PULSE 72; RESP 19; TEMP 37; O2SAT 97
[2017-11-21 05:54] LABS: BUN Creatinine Ratio 13.3 (6-22); Blood Urea Nitrogen 8 mg/dL (7-17); Calcium 8.4 mg/dL (8.4-10.2); Carbon Dioxide 27 mmol/L (22-32); Chloride 98 mmol/L (98-107); Estimated Glomerular Filt Rate > 60.0 mL/min (>60); Glucose 98 mg/dL (80-110); HEMOLYSIS < 15 (0-50); Sodium 134 mmol/L (137-145)
[2017-11-21] MEDS: LEVOTHYROXINE 75 MCG TABLET PO (06:05)
[2017-11-21] MEDS: GUAIFENESIN/DM 200/20 MG/10 ML UDC PO ×3 (06:05→14:40)
[2017-11-21 06:46] LABS: Basophils Percent Auto 0.6 % (0-2); Eosinophils Percent Auto 0.7 % (2-4); Hematocrit 29.1 % (36-46); Hemoglobin 10.7 g/dL (12.0-16.0); Lymphocytes Percent Auto 11.8 % (25-40); Mean Corpuscular HGB Conc 36.9 % (30-36); Mean Corpuscular Hemoglobin 31.4 PG (26-34); Monocytes Percent Auto 10.4 % (3-14); Neutrophils Absolute Auto 7200 /uL (3000-5900); Neutrophils Percent Auto 76.5 % (50-75); Platelet Count 165 X10^3/uL (150-400); Red Blood Cell Count 3.43 X10^6/uL (4.0-5.2); Red Cell Distribution Width 13.5 % (11.6-14.8); White Blood Cell Count 9.4 X10^3/uL (4.5-11.0)
[2017-11-21 06:49] LABS: Add Manual Diff / Slide Review SLIDE REVIEW
[2017-11-21 06:52] LABS: Poikilocytosis 1+
[2017-11-21 06:55] LABS: Spherocytes 1+
[2017-11-21 07:47] VITALS: BP 122/61; PULSE 76; RESP 16; TEMP 36.8; O2SAT 94
[2017-11-21 08:00] VITALS: O2SAT 96
[2017-11-21] MEDS: POTASSIUM CHLORIDE 20 MEQ TAB 40 MEQ PO ×2 (08:56→15:02)
--- NOTE | 2017-11-21 09:54 | PM.DS.1 ---
History of Present Illness Date Patient Seen: 11/21/17 Time Patient Seen: 09:55 Chief complaint: UTI Narrative: Patient is a 77-year-old female patient of Ayah Menendez in generally good health presents emergency department due to increasing weakness, loss of appetite, fever and chills. Symptoms started 5-6 days ago. She was seen in the clinic on November 17 and prescribed cephalexin for possible UTI. Urine culture was sent but no record of culture result in chart yet. Patient has also had a mild cough and reports watery stools. She came into the emergency department due to increasing weakness. No chest pain or shortness of breath. Patient was noted to have temp of 103? in the ER. Discharge Providers Date of admission: 11/19/17 19:22 Primary care physician: Ayah Menendez PA-C Consults: 11/21/17 08:41 Consult to Physical Therapy Evaluate & Treat Comment: Physician Instructions: Evaluate and Treat Discharge provider: RAMEZ Crystal Summary Discharge Diagnosis: 1. Bacterial pneumonia 2.. Anemia Hospital Course: This is a summary of a 2 day hospitalization for this 77-year-old patient who presented to the emergency room with high fevers cough and diarrhea. Chest x-ray revealed right lower lobe infiltrate and consolidation consistent with community-acquired bacterial pneumonia. Her white blood cell count procalcitonin were both mildly elevated. She was mildly hypotensive but not tachycardic on admission. She was started on Rocephin 1 g Q 24 hr and azithromycin 500 mg every 24 hr along with IV hydration. Blood cultures x2 revealed no growth after 24 hr. It is doubtful that she had a clinical UTI she does not have any urinary symptoms. Urine culture also showed no growth. She is acutely anemic as her hematocrit has significantly dropped to 29. There are no active signs of bleeding. Her iron level was low at 21, transferrin level was 157, and her ferritin was 694. She has been afebrile for the past 24 hr. She has also been normotensive, normal heart rate, and her saturations have remained at the low 90s on room air. She would probably benefit from an upper and lower GI at some point in the near future. She will also be discharged on Ceftin to complete a 10 day course, and azithromycin to complete a 3 day course. Status at Discharge Functional status at discharge: independent ambulation Overall status at discharge: patient is progressing back to baseline Time Spent with Patient Greater than 30 minutes Exam Vital Signs (past 8 hours): - 11/21/17 04:43 11/21/17 07:47 11/21/17 08:00 Temperature 98.6 F 98.3 F Pulse Rate 72 76 Respiratory Rate 19 16 Blood Pressure 122/59 H 122/61 H Pulse Oximetry 97 94 96 Oxygen Delivery Method Nasal Cannula Oxygen Flow Rate 2 Narrative Exam Narrative: Patient states she is feeling much better today. Continues to have low appetite and fatigue. Const General: cooperative, healthy appearing, comfortable, well developed and well groomed Nutritional Appearance: average body habitus Orientation: alert, awake and oriented x3 HENMT Head: normal to inspection, normocephalic and atraumatic Eyes General: appearance normal, both eyes and all related structures Pupils: PERRL Neck Neck: normal visual inspection, trachea midline and supple Other: No JVD or lymphadenopathy Chest Chest: normal inspection of the chest Resp Effort & Inspection: normal respiratory effort and able to speak in complete sentences Other: Some crackles in the bases with right basilar consolidation. Cardio Rate: regular rate Heart Sounds: S1 normal and S2 normal Other: No rubs clicks or murmurs appreciated GI Inspection: normal to inspection Palpation: soft Auscultation: normal bowel sounds Other: Nontender to palpation Other: Unremarkable Back/Spine/Pelvis Other: Unremarkable Skin General: no rashes or lesions noted, dry skin and warm Neuro General: alert, awake and oriented x3 Cognition: normal cognition Speech: speech normal Gait: normal gait Motor: muscle tone normal throughout Sensory Exam: no sensory deficits noted Extrem General: normal to inspection, capillary refill normal and no pedal edema Psych Appearance: grossly normal Mental Status: mental status grossly normal Mood: congruent mood Affect: normal affect Attitude: cooperative Thought Process: normal Thought Content: normal Judgment: judgment good Objective Labs Result Diagrams: 11/21/17 05:03 11/21/17 05:03 Labs: Laboratory Results - last 24 hr 11/21/17 11/21/17 05:03 05:03 WBC 9.4 RBC 3.43 L Hgb 10.7 L Hct 29.1 L MCV 85.0 MCH 31.4 MCHC 36.9 H RDW 13.5 Plt Count 165 Neut % (Auto) 76.5 H Lymph % (Auto) 11.8 L [place] % (Auto) 10.4 Eos % (Auto) 0.7 L Baso % (Auto) 0.6 Neut # (Auto) 7200 H RBC Morphology Not Reportable Poikilocytosis 1+ H Spherocytes 1+ H Sodium 134 L Potassium 3.0 L Chloride 98 Carbon Dioxide 27 BUN 8 Creatinine 0.60 Estimated GFR > 60.0 BUN/Creatinine Ratio 13.3 Glucose 98 Calcium 8.4 PROCEDURE: XR CHEST 2V INDICATIONS: Fever TECHNIQUE: 2 views of the chest were acquired. COMPARISON: None. FINDINGS: Surgical changes and devices: None. Lungs and pleura: No pleural effusions or pneumothorax. Pulmonary consolidation is present in the posterolateral right lower lobe consistent with pneumonia. Mediastinum: Mediastinal contours are normal. Heart size is normal. Bones and chest wall: No suspicious bony abnormalities. Scoliosis. Soft tissues appear unremarkable. IMPRESSION: Right lower lobe pneumonia Dictated by: Ishan Peck M.D. on 11/19/2017 at 16:49 Approved by: Ishan Peck M.D. on 11/19/2017 at 16:50 Discharge Plan Discharge Plan Patient Disposition: Home, Self-Care Discharge comment: Patient will need to have BMP and CBC drawn on Friday. Provider Discharge Instructions Diet: Regular Activity: As tolerated Oxygen: Room air Discharge Data Primary Care Provider: Ayah Menendez Attending Provider: Archie Esquivel Admit Date/Time: 11/19/17 19:22 Quality VTE Deep Vein Thrombosis/Pulmonary Embolism Present on Admission: No
[2017-11-21] MEDS: cefUROXime 250 MG TABLET 500 MG PO (10:19)
[2017-11-21] MEDS: AZITHROMYCIN 250 MG TABLET 500 MG PO (10:19)
[2017-11-21] MEDS: ACETAMINOPHEN 325 MG TABLET 650 MG PO (10:20)
[2017-11-21 12:00] VITALS: BP 110/52; PULSE 70; RESP 16; TEMP 37.2; O2SAT 93
--- NOTE | 2017-11-21 14:29 | PC.NURSE ---
11/18/2017 1430 A&Ox4, VSS, averaging 94% on RA. Continues with frequent, nonproductive cough, being treated with PRN meds. Tylenol for general pain. Potassium replaced this morning, antibiotics switched to PO, anticipated discharge to home with this afternoon. Incentive spirometer at bedside and encouraged hourly, pt very willing and motivated.
--- NOTE | 2017-11-21 14:53 | PT.IIE ---
Current Diagnoses Unspecified bacterial pneumonia (11/19/17) Medical History (Last Updated 11/19/17 @ 19:32 by Archie Esquivel MD) Degenerative disc disease (Acute) Hyperlipidemia (Acute) Hypothyroidism (Acute) Physical Therapy Inpatient Evaluation/Re-Eval M1 PT/OT-IP Prior Functional Status Start: 11/21/17 14:36 Freq: NEEDED Status: Active Protocol: Document 11/21/17 14:37 IJS (Rec: 11/21/17 14:52 IJS [id number]) Medical Review Prior Functional Status Medical History Reviewed Yes Diet/Fluid Consistency Regular Communication Englinsh and WNL Mobility and Gait Independent Activities of Daily Living and IADL's Independent Prior Functional Level (Other details) Lives in single level home with 3 step entry and rail. Does not want to practice stairs she is not worried about getting into the house. Social History Household Members spouse Living Arrangements House Number of Floors (Floors) One Floor Number of Stairs To Enter/Railing? 3, yes Home Environment Standard Height Toilet Home Equipment Straight Cane Employment Status Retired Additional Social History Comment capible of helping her and she still drives. She works on balance exercises at home on her own. M2 PT-IP Current Condition Start: 11/21/17 14:36 Freq: NEEDED Status: Active Protocol: Document 11/21/17 14:37 IJS (Rec: 11/21/17 14:52 IJS [id number]) Physical Therapy Current Condition Current Condition Evaluation Date 11/21/17 Treatment Diagnosis Community acquired pneumonia Onset Date 11/19/17 Weight Bearing Status Weight Bearing Status Full Weight Bearing M3 PT-IP Subjective Start: 11/21/17 14:36 Freq: NEEDED Status: Active Protocol: Document 11/21/17 14:37 IJS (Rec: 11/21/17 14:52 IJS [id number]) Subjective Physical Therapy Visit Type Type Initial Evaluation Visit Start Time 14:10 Visit Stop Time 14:35 Total Visit Minutes 25 Number of PAINT PREPPER Visits 0 Physical Therapy Visit Comments Patient Comments Does not use an assistive device at home and is not worried about falling at home. No history of falls and wants to walk without an assistive device for this evaluation. Patient/Caregiver Goals Plans to return home with her this evening. M4 PT-IP Mobility and Gait Start: 11/21/17 14:36 Freq: NEEDED Status: Active Protocol: Document 11/21/17 14:37 IJS (Rec: 11/21/17 14:52 IJS [id number]) PT-Bed Mobility Assessment Rolling Level of Assist Independent Supine to Sit Supine to Sit Independent Sit to Supine Sit to Supine Independent Scooting Scooting to Edge of Bed Independent PT-Transfer Assessment Sit to and From Stand Sit to and from Stand Independent Equipment Transfer Assistive Device None Orthotic/Prosthetic Devices or Brace: No Transfers Transfer Destination Bed Transfer Technique Stand Step Pivot Transfer Ability Level of Assist Standby Assistance Gait Assessment Gait Gait Assistance Required: Standby Assistance Able to Maintain Weight Bearing Status Yes During Gait Assistive Devices Assistive Device None Orthotic/Prosthetic Devices or Brace: No Gait Deviations General Gait Pattern Within Normal Limits Comments Gait Comments Initially was not walking a straight path but with practice and some balance exercises this improved. We had her wear her own shoes for the treatment and she donned independently. Stair Climbing Assessment Comments Stair Climbing Comments Declined to practice stairs is not worried about getting into her home. PT-Balance Assessment Sitting Balance and Reactions Static Sitting Balance Ability Normal Dynamic Sitting Balance Ability Normal Standing Balance and Reactions Static Standing Balance Ability Normal Dynamic Standing Balance Ability Good Comments Other Balance Tests/Deviations/Treatment Side stepping, high marching, : heel raises, walking with head turns. M5 PT-IP Objective Assessments Start: 11/21/17 14:36 Freq: NEEDED Status: Active Protocol: Document 11/21/17 14:37 IJS (Rec: 11/21/17 14:52 IJS [id number]) Orientation Orientation/Cognition Level of Alertness Alert Orientation Name Age Birthday Month Date Year Day of Week Place Situation Language Function Ability No Deficits Noted Safety Awareness Understands Safety Issues Memory Description No Deficits Noted Gross Range of Motion Upper Extremity ROM Assessment Within Functional Limits Lower Extremity ROM Assessment Within Functional Limits Strength Upper Extremity Strength Assessment Within Functional Limits Lower Extremity Strength Assessment Within Functional Limits Comments Strength Comments General weakness from hosital stay and illness. Coordination Assessment Gross Coordination Gross Coordination WNL Sensation Assessment Sensation Gross Sensation WNL Light Touch Intact Proprioception (Position) Intact Muscle Tone Muscle Tone WNL Yes M6 PT-IP Treatment Start: 11/21/17 14:36 Freq: NEEDED Status: Active Protocol: Document 11/21/17 14:37 IJS (Rec: 11/21/17 14:52 IJS [id number]) Physical Therapy Treatment Exercises Exercises Ankle Pumps Shoulder Flexion Education Education Provided Safety Other Treatments Other Treatment Performed Discussed calling for the nurse if wants to get up for SBA. M7 PT-IP Assessment and Plan Start: 11/21/17 14:36 Freq: NEEDED Status: Active Protocol: Document 11/21/17 14:37 IJS (Rec: 11/21/17 14:52 IJS [id number]) PT Summary Assessment and Plan Potential Rehabilitation Potential Excellent Status of Condition at Evaluation Stable Summary Assessment Summary Post admit day #2, doing well and expect improved endurance, strength and gait with time at home. Frequency of Treatment Frequency Of Treatment Discharge Recommendations To Nursing Amount of Assist Needed Standby Assistance Discharge Recommendations PT Discharge Recommendations Home
== END 2017-11-21 15:34 | disposition home or self-care (01) | DRG 195 ==
LOC: ED 17:15 → AC 19:24
PROVIDERS: Internal Medicine; Admitting Provider Internal Medicine; Emergency Provider Nurse Practitioner Family; Family Provider Physician Assistant; PCP Physician Assistant; Visit Provider Internal Medicine
DX: J15.9 Unspecified bacterial pneumonia (principal); E78.5 Hyperlipidemia, unspecified; E03.9 Hypothyroidism, unspecified; D64.9 Anemia, unspecified
CPT/HCPCS: 36415; 36591; 71046; 80048; 80053; 81001; 82728; 83540; 83550; 83605; 84145; 85025; 87040; 87086; 87400; 96365; 96366; 96368; 96375; 97161; 99283; 99285; J1885

== ENCOUNTER → 2017-11-28 09:26 | Outpatient (CLI) | payer MEDICARE, SELFPAY ==
[2017-11-19 19:55] VITALS: BMI 22.3
--- NOTE | 2017-11-28 | DI.RAD.S_ITS ---
PROCEDURE: XR CHEST 2V INDICATIONS: PNEUMONIA TECHNIQUE: 2 views of the chest were acquired. COMPARISON: [facility], CR, XR CHEST 2V, 11/19/2017, 15:47. FINDINGS: Surgical changes and devices: None. Lungs and pleura: No pleural effusions or pneumothorax. Lungs are improving, with significant reduction in the degree of pneumonia seen at the right lower lobe.. Mediastinum: Mediastinal contours are normal. Heart size is normal. Bones and chest wall: No suspicious bony abnormalities. Convex rightward scoliosis centered at the lower thoracic spine. Soft tissues appear unremarkable. IMPRESSION: Improving right mid and lower lung pneumonia. No pleural effusion has developed. Dictated by: Alan Richard M.D. on 11/28/2017 at 9:46 Approved by: Alan Richard M.D. on 11/28/2017 at 9:47
== END ==
PROVIDERS: Family Provider Physician Assistant; PCP Physician Assistant; Visit Provider Physician Assistant
DX: J18.9 Pneumonia, unspecified organism (principal)
CPT/HCPCS: 71046

== ENCOUNTER → 2018-11-10 10:00 | Outpatient (CLI) | payer MEDICARE, SELFPAY ==
[2017-11-19 19:55] VITALS: BMI 22.3
--- NOTE | 2018-11-10 10:03 | DI.US.S_ITS ---
PROCEDURE: US EXTREMITY NONVASC LOWER LT INDICATIONS: PALPABLE LEFT BUTTOCK LUMP TECHNIQUE: Real-time scanning was performed of the left buttock, with image documentation. COMPARISON: None. FINDINGS: Scanning is performed at the area of clinical concern involving the left inferior buttock/upper thigh. At this site, there is a focus demonstrating mixed echogenicity, yet largely hypoechoic that measures 2.8 x 1.2 x 3.1 cm. Increased peripheral vascularity is seen. IMPRESSION: A 3.1 cm focus of mixed echogenicity is seen at the area of concern. Differential diagnosis includes a phlegmon and a hematoma. If this focus does not resolve clinically, then please consider a followup ultrasound in 2-[address] with IV contrast. Dictated by: Nabor Carcamo M.D. on 11/10/2018 at 11:09 Approved by: Nabor Carcamo M.D. on 11/10/2018 at 11:11
== END ==
PROVIDERS: PCP Internal Medicine; Referring Provider Surgery; Visit Provider Internal Medicine Gastroenterology
DX: R22.42 Localized swelling, mass and lump, left lower limb (principal)
CPT/HCPCS: 76882

== ENCOUNTER 2018-11-25 09:38 | Day surgery (SDC) | payer MEDICARE, SELFPAY ==
[2017-11-19 19:55] VITALS: BMI 22.3
[2018-11-11 12:13] VITALS: BMI 22.6
[2018-11-25 10:02] VITALS: BP 172/77; PULSE 79; RESP 15; TEMP 36.5; O2SAT 97
[2018-11-25 10:04] VITALS: BMI 20.9
[2018-11-25] MEDS: LACTATED RINGERS 1,000 ML 100 ML IV (10:10)
--- NOTE | 2018-11-25 10:23 | SUR.PREOP ---
Surgeon examining patient, lump has improved; case cancelled.
--- NOTE | 2018-11-25 10:33 | SUR.PREOP ---
IV has been DC'd, 3 rings returned, patient dressed and discharged.
--- NOTE | 2018-11-25 11:15 | PM.PN.1 ---
Subjective Date Patient Seen: 11/25/18 Time Patient Seen: 11:15 Interval history: 78-year-old woman examined in preoperative suite ahead of planned excisional biopsy of left buttock mass. Patient reports that in the interval between her clinic visit and now the mass has almost entirely resolved. She has great difficulty locating it with her fingertips. On exam I spent considerable amount of time palpating the area -small area of subtle difference in tissue texture is identified. However I am not confident I could locate this intraoperatively. Ultrasound performed shortly after initial visit demonstrated a poorly organized collection with peripheral increased vascularity. Possibility of hematoma versus phlegmon Given the self resolution of the lesion, the significant difficulty in locating it, as well as the ultrasound finding -I do not think an exploratory surgery is nick. I discussed with the patient that tumor/neoplastic processes do not usually self resolve. She is feeling well without symptoms in the area -given this think placing an incision which has some morbidity at the gluteal crease would be a poor choice now that is asymptomatic Plan: Cancelling surgery today If this becomes a recurrent problem patient will make appointment to see me in office Exam Vital Signs (past 8 hours): - 11/25/18 10:02 Temperature 97.7 F Pulse Rate 79 Respiratory Rate 15 Blood Pressure 172/77 H Pulse Oximetry 97 Oxygen Delivery Method Room Air
== END 2018-11-25 10:32 | disposition home or self-care (01) ==
LOC: OR 09:39
PROVIDERS: PCP Internal Medicine; Visit Provider Surgery
DX: R22.9 Localized swelling, mass and lump, unspecified (principal)
CPT/HCPCS: 27043

== ENCOUNTER → 2019-02-01 11:06 | Outpatient (ROUT) | payer MEDICARE, SELFPAY ==
[2017-11-19 19:55] VITALS: BMI 22.3
[2019-02-01 11:28] LABS: Erythrocyte Sedimentation Rate 8 MM/HR (0-20)
== END ==
PROVIDERS: PCP Internal Medicine; Visit Provider Internal Medicine
DX: R51 Headache (principal)
CPT/HCPCS: 85651

== ENCOUNTER → 2019-08-12 07:53 | Outpatient (CLI) | payer MEDICARE, SELFPAY ==
[2017-11-19 19:55] VITALS: BMI 22.3
--- NOTE | 2019-08-12 | DI.MRI.S_ITS ---
PROCEDURE: MR CERVICAL SPINE WO CON INDICATIONS: Spinal stenosis, cervical region TECHNIQUE: Noncontrast sagittal T1 spin echo and T2 fast spin echo, sagittal STIR, foraminal oblique sagittal T2 fast spin echo, and axial gradient echo or T2 fast spin echo through the cervical spine. COMPARISON: [facility], MR, MR CERVICAL SPINE WITHOUT CONTRAST, 10/13/2017, 20:16. [facility], CR, XR CERVICAL SPINE WITH OBLIQUES, 08/05/2019, 10:05. FINDINGS: Image quality: Excellent. Alignment and Curvature: There is mild anterolisthesis of C4 on C5 measuring approximately 3 mm which appears similar to the prior study. Minimal retrolisthesis at C5-C6 and C6-C7 also appear similar to the prior exam. Bone Marrow: Marrow demonstrates normal overall signal. There is mild reactive endplate edema at C5-C6 anteriorly. Spinal Cord: Visualized spinal cord has normal size and signal. No cerebellar tonsillar herniation. Paraspinous Soft Tissues: No paravertebral masses. Prevertebral soft tissues are normal in thickness. There is thickening of the posterior longitudinal ligament from C2-C5. C2-C3: There is a minimal disc osteophyte complex with associated minimal spinal canal narrowing. Mild uncovertebral joint arthropathy present with minimal left neural femoral narrowing. Findings are similar to the prior study. C3-C4: Small posterior disc osteophyte complex with mild ligamentum flavum hypertrophy. There is mild uncovertebral and facet joint arthropathy. Findings contribute to moderate spinal canal narrowing with minimal mass effect on the cervical cord anteriorly. There is mild right and minimal left neuroforaminal narrowing. The findings are similar to the prior study. C4-C5: Posterior disc osteophyte complex with mild uncovertebral and facet joint arthropathy. The findings contribute to severe spinal canal narrowing with mass effect on and focal flattening of the cervical cord anteriorly. This appears slightly increased compared to the prior study. There is moderate left and minimal right neuroforaminal narrowing which appears slightly increased on the left. C5-C6: Moderate loss of disc height with a small disc osteophyte complex. Ligamentum flavum hypertrophy is noted posteriorly. There is moderate spinal canal narrowing which appears similar to the prior exam. There is also severe right and mild to moderate left neuroforaminal narrowing which appears slightly increased on the right compared to the prior study. C6-C7: Prominent posterior disc osteophyte complex with associated moderate spinal canal narrowing with mild mass effect on the cervical cord anteriorly. This appears similar to the prior study. There is mild uncovertebral and facet joint arthropathy. Findings NG tube moderate left and mild to moderate right neuroforaminal narrowing which appear similar to the prior study. C7-T1: No spinal canal or neuroforaminal narrowing. IMPRESSION: 1. Multilevel degenerative changes redemonstrated throughout the cervical spine including severe spinal canal narrowing at C4-C5 with mass effect on the cervical cord with associated mild flattening. This appears slightly increased compared to the prior study. Milder spinal canal narrowing at other levels including moderate narrowing at C6-C7 appears similar to the prior study. 2. Multilevel neuroforaminal narrowing redemonstrated including severe narrowing on the right at C5-C6 which appears slightly increased compared to the prior study. Dictated by: Frederick Montiel M.D. on 08/12/2019 at 10:40 Approved by: Frederick Montiel M.D. on 08/12/2019 at 10:58
== END ==
PROVIDERS: PCP Student in an Organized Health Care Education/Training Program; Referring Provider Physical Medicine & Rehabilitation Pain Medicine; Visit Provider Physical Medicine & Rehabilitation Pain Medicine
DX: M48.02 Spinal stenosis, cervical region (principal); M47.812 Spondylosis without myelopathy or radiculopathy, cervical region; M79.18 Myalgia, other site
CPT/HCPCS: 72141

== ENCOUNTER → 2020-05-23 12:09 | Outpatient (CLI) | payer MEDICARE, SELFPAY ==
[2017-11-19 19:55] VITALS: BMI 22.3
--- NOTE | 2020-05-23 | DI.MRI.S_ITS ---
PROCEDURE: MR LUMBAR SPINE WO CON INDICATIONS: SPONDYLOLISTHESIS, LUMBAR REGION TECHNIQUE: Noncontrast sagittal T1 spin echo and T2 fast echo, coronal T2, sagittal STIR, axial T1 and T2 fast spin echo through the lumbar spine. COMPARISON: [facility], , L-SPINE WITHOUT CONTRAST, 04/29/2017, 7:13. FINDINGS: Image quality: Excellent. Alignment and Curvature: 5 lumbar type vertebral bodies are present by plain film. Moderate leftward curvature of the upper lumbar spine. Mild grade 1 retrolisthesis of L1 on L2 and L2 on L3. Mild grade 1 anterolisthesis of L4 on L5 and L5 on S1. Bone Marrow: Marrow is of normal overall signal. No acute vertebral body compression fractures. Mild reactive signal within the endplates adjacent to the T10-T11, T11-T12, T12-L1, L2-L3, L3-L4, L4-L5, and L5-S1 intervertebral discs. Spinal Cord: Conus medullaris terminates at the L2-L3 disc space level. Visualized cord demonstrates normal signal and size. Paraspinous Soft Tissues: No paravertebral masses. L1-L2: Moderate disc height loss and desiccation. Mild diffuse disc bulge. Mild facet and ligamentum flavum hypertrophy. Mild canal stenosis. Increased, moderate bilateral foraminal stenosis. L2-L3: Moderate disc height loss and desiccation. Mild diffuse disc bulge. Mild facet and ligamentum flavum hypertrophy. Mild epidural lipomatosis. Mild canal stenosis. Moderate right and mild left foraminal stenosis. No change. L3-L4: Moderate disc height loss and desiccation. Mild diffuse disc bulge. Mild facet and ligamentum flavum hypertrophy. Mild epidural lipomatosis. Mild canal stenosis. Increased, severe right foraminal stenosis. No change in moderate left foraminal stenosis. Right L3 nerve root compression, new since the prior examination. L4-L5: Moderate disc height loss and desiccation. Mild diffuse disc bulge. Moderate bilateral facet hypertrophy. Increased, severe canal stenosis. Increased, severe bilateral foraminal stenosis with bilateral L4 nerve root compression. L5-S1: Moderate disc height loss and desiccation. Mild diffuse disc bulge with small superimposed broad-based left far lateral protrusion. Mild bilateral facet hypertrophy. Mild canal stenosis. Severe left and mild right foraminal stenosis. Left L5 nerve root compression. No change. IMPRESSION: 1. Multilevel degenerative disc and facet disease, as well as ligamentum flavum hypertrophy and epidural lipomatosis. 2. Multilevel canal stenoses, worst at L4-L5 where there is increased, severe canal stenosis. 3. Multilevel foraminal stenosis, worst at L3-L4, L4-L5, and L5-S1 where there is associated intraforaminal nerve root compression. Recommend correlation with clinical symptoms to ascertain relevance of these findings. Dictated by: Lina Jefferson M.D. on 05/23/2020 at 14:17 Approved by: Lina Jefferson M.D. on 05/23/2020 at 14:23
== END ==
PROVIDERS: PCP Student in an Organized Health Care Education/Training Program; Referring Provider Physical Medicine & Rehabilitation Pain Medicine; Visit Provider Physical Medicine & Rehabilitation Pain Medicine
DX: M43.16 Spondylolisthesis, lumbar region; M51.36 Other intervertebral disc degeneration, lumbar region; M51.37 Other intervertebral disc degeneration, lumbosacral region; M48.061 Spinal stenosis, lumbar region without neurogenic claudication; M48.07 Spinal stenosis, lumbosacral region; E88.2 Lipomatosis, not elsewhere classified
CPT/HCPCS: 72148

== ENCOUNTER 2020-09-30 06:54 | Emergency (ER) | payer MEDICARE, SELFPAY ==
[2017-11-19 19:55] VITALS: BMI 22.3
[2020-09-30 07:09] VITALS: BP 208/92; PULSE 89; RESP 24; TEMP 36.9; O2SAT 99; BMI 23.0
--- NOTE | 2020-09-30 07:15 | ED.ANIMALBIT ---
HPI - Animal Bite General Chief Complaint: Extremity Injury, Upper Stated Complaint: dog bite Time Seen by Provider: 09/30/20 07:04 Source: patient Mode of arrival: Ambulatory Limitations: no limitations History of Present Illness HPI narrative: Patient is a 80-year-old female who presents with dog bite to her right wrist and hand. [place] a man's large least dog attacked her. She has obvious injury to posterior wrist. No numbness tingling or decreased range of motion. She has a large hand contusion swelling. Also complaining of right hip pain, but is ambulating. No knee pain. Related Data Home Medications Medication Instructions Recorded Confirmed ascorbic acid (vitamin C) [Vitamin 1 tab PO DAILY 11/19/17 11/25/18 C] aspirin 81 mg PO DAILY 11/19/17 11/25/18 calcium carbonate [Calcium 600] 1 tab PO DAILYCC 11/19/17 11/11/18 cholecalciferol (vitamin D3) 2,000 unit PO DAILY 11/19/17 11/11/18 [Vitamin D3] cyanocobalamin (vitamin B-12) 2,000 mcg PO DAILY 11/19/17 11/11/18 [Vitamin B-12] levothyroxine 75 mcg PO DAILY 11/19/17 11/25/18 multivitamin 1 cap PO DAILY #0 11/19/17 11/25/18 omega 9-mkx-jor-fish oil [Fish Oil] 1 cap PO DAILY 11/19/17 11/25/18 lactobacillus combination no.4 3,000 mmu cells PO DAILY 11/13/18 11/25/18 [Probiotic] turmeric root extract 500 mg PO DAILY 11/13/18 11/25/18 Previous Rx's Medication Instructions Recorded amoxicillin-pot clavulanate 1 tab PO Q12H #14 tab 09/30/20 [Augmentin] hydrocodone-acetaminophen 1 tab PO Q6H PRN #10 tab 09/30/20 Allergies Allergy/AdvReac Type Severity Reaction Status Date / Time No Known Drug Allergies Allergy Verified 11/25/18 09:58 Review of Systems Review of Systems Narrative: GENERAL: Denies chills,fever HEENT: Denies throat pain RESPIRATORY: Denies dyspnea, cough, wheezing CARDIOVASCULAR: Denies chest pain, palpitations GASTROINTESTINAL: Denies nausea, vomiting MUSCULOSKELETAL: Denies extremity pain, injury SKIN: See HPI NEUROLOGIC: Denies weakness, dizziness, headache, numbness 8 point review of systems is negative except for those stated above and HPI Patient History Medical History Anemia Bacterial pneumonia (11/19/17) Bruises easily Degenerative disc disease Degenerative disc disease, cervical Degenerative disc disease, lumbar HTN (hypertension) Hyperlipidemia Hypothyroidism Surgical History Hx of hysterectomy Hx of shoulder surgery Family History Father Heart disease Grandmother Cancer Social History marital status: household members: spouse Smoking Status: Never smoker alcohol intake: current substance use type: does not use Smoking Status: Never smoker alcohol intake frequency: holidays/special occasions only Substance Use Type: does not use Exam Initial Vital Signs Initial Vital Signs: Vital Signs Temperature 98.5 F 09/30/20 07:09 Pulse Rate 89 09/30/20 07:09 Respiratory Rate 24 09/30/20 07:09 Blood Pressure 208/92 H 09/30/20 07:09 Pulse Oximetry 99 09/30/20 07:09 GENERAL: Alert 80-year-old female appears uncomfortable CARDIOVASCULAR: peripheral pulses in tact, cap refill <2 sec RESPIRATORY: No respiratory distress, speaks in full sentences without difficulty EXTREMITIES: Normal range of motion, no clubbing or edema. Neurovascularly intact. Mild right hip pain but no pain with internal external rotation no contusion noted. Right knee is within normal limits Wrist good flexion extension and rotation sensation in all fingertips intact able to make fist strong distal radial pulse NEUROLOGICAL: Cranial nerves II through XII grossly intact. Normal gait and speech. SKIN: Large late skin tear and laceration of right wrist 6 cm x 7 cm. Right middle finger dorsal side 1 cm laceration full flexion extension. Procedures Laceration Repair Laceration 1: Site: hand (middle finger) Side (If applicable): right Size (cm): 1 Description: linear Depth: simple, single layer Pre-repair: wound explored Skin layer closed with: steri-strips Course Orders Ordered: ED Orders 09/30/20 07:30 XR wrist RT min 3V Stat 09/30/20 07:33 XR hand RT min 3V Stat Discontinued Medications Hydrocodone Bitart/Acetaminophen (Hydrocodone/Acet 5/325 Tablet) 1 tab PO NOW ONE Stop: 09/30/20 07:31 Last Admin: 09/30/20 07:38 Dose: 1 tab Documented by: DEBORAH Vital Signs Vital signs: Vital Signs - 8 hr 09/30/20 07:09 Temperature 98.5 F Pulse Rate 89 Respiratory Rate 24 Blood Pressure 208/92 H Pulse Oximetry 99 MDM - Animal Bite Imaging Data Extremity x-ray #1: Radiologist's Impression: PROCEDURE: XR WRIST RT MIN 3V INDICATIONS: dog bite TECHNIQUE: 4 views of the wrist were acquired. COMPARISON: [facility], , XR HAND RT MIN 3V, 09/30/2020, 7:43. FINDINGS: Bones: No fractures or dislocations. There is moderate degeneration along the triscaphe articulation. No suspicious bony lesions. Scaphoid view: The scaphoid appears intact. Soft tissues: No radiopaque foreign bodies. There is soft tissue swelling along the dorsal ulnar aspect of the hand and wrist. Multiple focal lucencies are demonstrated within the soft tissues consistent with soft tissue gas and lacerations. IMPRESSION: 1. No fractures or radiopaque foreign bodies. 2. Soft tissue swelling with lacerations and soft tissue gas along the ulnar dorsal aspect of the hand and wrist. Dictated by: Frederick Montiel M.D. on 09/30/2020 at 7:54 Extremity x-ray #2: Radiologist's Impression: PROCEDURE: XR HAND RT MIN 3V INDICATIONS: dog bite TECHNIQUE: 3 views of the hand acquired. COMPARISON: [facility], , XR WRIST RT MIN 3V, 09/30/2020, 7:43. FINDINGS: Bones: No fractures or dislocations. There is moderate degeneration at the triscaphe articulation. Mild degeneration also demonstrated in the distal interphalangeal joints. No suspicious bony lesions. Soft tissues: No radiopaque foreign bodies. There is soft tissue swelling along the dorsal ulnar aspect of the hand and wrist with foci of soft tissue gas and lacerations. IMPRESSION: 1. No fractures or radiopaque foreign bodies. 2. Soft tissue swelling of the ulnar dorsal aspect of the hand and wrist with soft tissue gas and lacerations. Dictated by: Frederick Montiel M.D. on 09/30/2020 at 7:56 MDM Narrative Medical decision making narrative: Patient is filling out forms to report animal bite. Her vaccinations are up-to-date. Wound is cleansed with 2 bottles of saline. Manuel dressing is placed. Steri-Strips placed over left middle finger. Discharge Plan Departure Patient Disposition: Home Clinical Impression: Dog bite Qualifiers: Encounter type: initial encounter Qualified Code(s): W54.0XXA - Bitten by dog, initial encounter Instructions: DI for Dog Bite Activity Restrictions/Additional Instructions: *You have been diagnosed with dog bite to right wrist *What to do: Keep bandage on monitor for infection *Continue to take medications as directed--> SENT TO [facility] Augmentin 875 mg twice a day for 7 days [place] 1 tablet every 6 hours if needed for severe pain Ibuprofen 600 mg every 6 hours if needed for zbhn-gy-jszivavc pain *Follow up with your primary care provider in 2-3 days *Return to ER if you should have redness pus swelling decreased range of motion, increased pain, fever more than 100.4 [o] any new, worsening or concerning symptoms CONTROLLED SUBSTANCE DISCHARGE (Narcotoic/benzodiazepine/Flexeril/Phenergan) 1. You have been prescribed narcotic medications, it does have acetaminophen/Tylenol/paracetamol in it, DO NOT TAKE MORE THAN 4,00mg in 24 hours of Tylenol. TRAMADOL DOES NOT CONTAIN TYLENOL 2. Please understand that we cannot provide further refills of narcotics, benzodiazepines or controlled substances through the ED and her pain management will need to be through your provider. 3. While on these medications you cannot drive or operate heavy machinery. 4. You cannot sign legal documents or perform any duties such as this. 5. As long as you're taking opiate pain medications he should also be taking a stool softener such as Colace, Dulcolax, MiraLAX or prune juice, to help avoid constipation. Prescriptions: New hydrocodone-acetaminophen 5-325 mg tablet 1 tab PO Q6H PRN (Reason: pain) Qty: 10 RF: 0 amoxicillin-pot clavulanate [Augmentin] 875-125 mg tablet 1 tab PO Q12H Qty: 14 RF: 0 No Action turmeric root extract 500 mg Capsule 500 mg PO DAILY RF: 0 Probiotic 3 billion cell Capsule 3,000 mmu cells PO DAILY RF: 0 levothyroxine 75 mcg tablet 75 mcg PO DAILY RF: 0 ascorbic acid (vitamin C) [Vitamin C] 1,000 mg Tablet 1 tab PO DAILY RF: 0 cyanocobalamin (vitamin B-12) [Vitamin B-12] 1,000 mcg Tablet 2,000 mcg PO DAILY RF: 0 aspirin 81 mg Tablet,Delayed Release (Dr/Ec) 81 mg PO DAILY RF: 0 calcium carbonate [Calcium 600] 600 mg calcium (1,500 mg) Tablet 1 tab PO DAILYCC RF: 0 multivitamin Capsule 1 cap PO DAILY Qty: 0 RF: 0 cholecalciferol (vitamin D3) [Vitamin D3] 2,000 unit Capsule 2,000 unit PO DAILY RF: 0 omega 4-brm-qrk-fish oil [Fish Oil] 1,000 mg (120 mg-180 mg) Capsule 1 cap PO DAILY RF: 0 Referrals: Sonia Tyler PA-C [Primary Care Provider] -
--- NOTE | 2020-09-30 07:30 | DI.RAD.S_ITS ---
PROCEDURE: XR WRIST RT MIN 3V INDICATIONS: dog bite TECHNIQUE: 4 views of the wrist were acquired. COMPARISON: [facility], CR, XR HAND RT MIN 3V, 09/30/2020, 7:43. FINDINGS: Bones: No fractures or dislocations. There is moderate degeneration along the triscaphe articulation. No suspicious bony lesions. Scaphoid view: The scaphoid appears intact. Soft tissues: No radiopaque foreign bodies. There is soft tissue swelling along the dorsal ulnar aspect of the hand and wrist. Multiple focal lucencies are demonstrated within the soft tissues consistent with soft tissue gas and lacerations. IMPRESSION: 1. No fractures or radiopaque foreign bodies. 2. Soft tissue swelling with lacerations and soft tissue gas along the ulnar dorsal aspect of the hand and wrist. Dictated by: Frederick Montiel M.D. on 09/30/2020 at 7:54 Approved by: Frederick Montiel M.D. on 09/30/2020 at 7:56
--- NOTE | 2020-09-30 07:33 | DI.RAD.S_ITS ---
PROCEDURE: XR HAND RT MIN 3V INDICATIONS: dog bite TECHNIQUE: 3 views of the hand acquired. COMPARISON: [facility], CR, XR WRIST RT MIN 3V, 09/30/2020, 7:43. FINDINGS: Bones: No fractures or dislocations. There is moderate degeneration at the triscaphe articulation. Mild degeneration also demonstrated in the distal interphalangeal joints. No suspicious bony lesions. Soft tissues: No radiopaque foreign bodies. There is soft tissue swelling along the dorsal ulnar aspect of the hand and wrist with foci of soft tissue gas and lacerations. IMPRESSION: 1. No fractures or radiopaque foreign bodies. 2. Soft tissue swelling of the ulnar dorsal aspect of the hand and wrist with soft tissue gas and lacerations. Dictated by: Frederick Montiel M.D. on 09/30/2020 at 7:56 Approved by: Frederick Montiel M.D. on 09/30/2020 at 7:57
[2020-09-30] MEDS: HYDROCODONE/ACET 5/325 TABLET 1 TAB PO (07:38)
[2020-09-30 08:44] VITALS: BP 180/84; PULSE 72; RESP 18; O2SAT 97
== END 2020-09-30 08:44 | disposition home or self-care (01) ==
PROVIDERS: Emergency Provider Emergency Medicine; PCP Student in an Organized Health Care Education/Training Program
DX: S61.551A Open bite of right wrist, initial encounter (principal); M25.551 Pain in right hip; W54.0XXA Bitten by dog, initial encounter
CPT/HCPCS: 73110; 73130; 99283

== ENCOUNTER → 2021-04-16 07:54 | Outpatient (CLI) | payer OTHER, SELFPAY ==
[2017-11-19 19:55] VITALS: BMI 22.3
[2021-04-16 08:51] LABS: Hematocrit 37.7 % (36-46); Hemoglobin 13.4 g/dL (12.0-16.0); Mean Corpuscular HGB Conc 35.5 % (30-36); Mean Corpuscular Hemoglobin 30.8 PG (26-34); Mean Corpuscular Volume 86.8 fL (80-100); Platelet Count 162 X10^3/uL (150-400); Red Blood Cell Count 4.35 X10^6/uL (4.0-5.2); Red Cell Distribution Width 12.9 % (11.6-14.8); White Blood Cell Count 5.2 X10^3/uL (4.5-11.0)
[2021-04-16 09:07] LABS: Alanine Aminotransferase 25 IU/L (<35); Albumin 4.2 g/dL (3.5-5.0); Albumin Globulin Ratio 1.4 (1.0-2.8); Alkaline Phosphatase 54 U/L (38-126); Aspartate Aminotransferase 32 IU/L (14-36); BUN Creatinine Ratio 22.1 (6-22); Bilirubin Total 0.7 mg/dL (0.2-1.3); Blood Urea Nitrogen 17 mg/dL (7-17); Calcium 9.7 mg/dL (8.4-10.2); Carbon Dioxide 35 mmol/L (22-32); Chloride 100 mmol/L (98-107); Cholesterol 228 mg/dL (140-199); Estimated Glomerular Filt Rate > 60.0 mL/min (>60); Glucose 104 mg/dL (80-110); HDL Cholesterol 76 mg/dL (40-60); HEMOLYSIS < 15 (0-50); LDL Cholesterol Calculated 133 mg/dL (<100); Potassium 4.2 mmol/L (3.4-5.1); Sodium 138 mmol/L (137-145); Total Protein 7.2 g/dL (6.3-8.2); Triglycerides 93 mg/dL (35-150)
[2021-04-16 10:05] LABS: Thyroid Stimulating Hormone 1.93 uIU/mL (0.47-4.68)
== END ==
PROVIDERS: PCP Student in an Organized Health Care Education/Training Program; Referring Provider Student in an Organized Health Care Education/Training Program; Visit Provider Student in an Organized Health Care Education/Training Program
DX: Z00.00 Encounter for general adult medical examination without abnormal findings (principal); E03.9 Hypothyroidism, unspecified; E78.2 Mixed hyperlipidemia
CPT/HCPCS: 36415; 80053; 80061; 84443; 85027

== ENCOUNTER → 2021-12-11 10:57 | Outpatient (CLI) | payer OTHER, SELFPAY ==
[2017-11-19 19:55] VITALS: BMI 22.3
== END ==
PROVIDERS: Family Provider Student in an Organized Health Care Education/Training Program; PCP Student in an Organized Health Care Education/Training Program; Referring Provider Student in an Organized Health Care Education/Training Program; Visit Provider Student in an Organized Health Care Education/Training Program

== ENCOUNTER 2024-01-01 16:55 | Emergency (ER) | payer MEDICARE, SELFPAY ==
[2017-11-19 19:55] VITALS: BMI 22.3
[2024-01-01] VITALS (7 sets, daily range): BP systolic 154–184; BP diastolic 76–86; PULSE 65–72; RESP 12–24; TEMP 36.6; O2SAT 96–100; BMI 21.0
--- NOTE | 2024-01-01 17:00 | DI.RAD.S_ITS ---
PROCEDURE: XR CHEST 1V INDICATIONS: Chest pain TECHNIQUE: One view of the chest was acquired. COMPARISON: [facility], CR, XR CHEST 2V, 11/28/2017, 9:14. FINDINGS: Surgical changes and devices: None. Lungs and pleura: Lungs are clear. No pleural effusions or pneumothorax. Mediastinum: Mediastinal contours appear normal. Heart size is normal. Bones and chest wall: S-shaped scoliosis in the thoracolumbar spine, convexity to the right in the thoracic region. Overlying soft tissues appear unremarkable. IMPRESSION: No acute cardiopulmonary abnormality is seen. Dictated by: Baljeet Roe M.D. on 01/01/2024 at 17:19 Approved by: Baljeet Roe M.D. on 01/01/2024 at 17:25
--- NOTE | 2024-01-01 17:28 | EKG_ITS ---
[place] [id number] [place] [id number] Test Date: 2024-01-01 Pat Name: Lorena Linton Department: [facility] Room: Gender: Female [employer]: JOSEPH : 1940 Requested By: Order Number: [id number] Reading MD: Vaughn Arora MD Measurements Intervals [place] Rate: 69 P: 66 SD: 166 QRS: 65 QRSD: 76 T: 49 QT: 396 QTc: 424 Interpretive Statements Normal sinus rhythm Nonspecific ST abnormality Electronically Signed On 01-02-2024 7:34:33 PDT by Vaughn Arora MD
[2024-01-01 17:59] LABS: Add Manual Diff / Slide Review NO; Basophils Absolute Auto 100 /uL (0-100); Basophils Percent Auto 1.1 % (0-2); Eosinophils Absolute Auto 300 /uL (0-450); Eosinophils Percent Auto 4.7 % (2-4); Hematocrit 34.3 % (36-46); Hemoglobin 12.3 g/dL (12.0-16.0); Lymphocytes Absolute Auto 1600 /uL (1100-4500); Lymphocytes Percent Auto 25.7 % (25-40); Mean Corpuscular HGB Conc 35.8 % (30-36); Mean Corpuscular Hemoglobin 31.1 PG (26-34); Mean Corpuscular Volume 86.8 fL (80-100); Monocytes Absolute Auto 600 /uL (0-900); Neutrophils Absolute Auto 3500 /uL (1500-7000); Neutrophils Percent Auto 58.5 % (50-75); Platelet Count 170 X10^3/uL (150-400); Red Blood Cell Count 3.96 X10^6/uL (4.0-5.2); Red Cell Distribution Width 14.2 % (11.6-14.8)
[2024-01-01 18:01] LABS: Alanine Aminotransferase 22 IU/L (<35); Albumin 4.5 g/dL (3.5-5.0); Albumin Globulin Ratio 1.6 (1.0-2.8); Alkaline Phosphatase 63 U/L (38-126); Aspartate Aminotransferase 35 IU/L (14-36); BUN Creatinine Ratio 22.1 (6-22); Blood Urea Nitrogen 17 mg/dL (7-17); Calcium 10.1 mg/dL (8.4-10.2); Carbon Dioxide 27 mmol/L (22-32); Chloride 104 mmol/L (98-107); Creatine Kinase 45 U/L (30-135); Estimated Glomerular Filt Rate > 60 mL/min (>60); Globulin 2.8 g/dL (1.7-4.1); Glucose 96 mg/dL (80-110); HEMOLYSIS 30 (0-50); Lipase 300 U/L (23-300); Magnesium 2.1 mg/dL (1.6-2.3); Sodium 138 mmol/L (137-145); Total Protein 7.3 g/dL (6.3-8.2)
[2024-01-01 18:13] LABS: Troponin I < 0.012 ng/mL (0.01-0.034)
--- NOTE | 2024-01-01 19:53 | ED_ITS ---
HPI - Back Pain/Injury General Chief Complaint: Back Pain/Injury Stated Complaint: sent by [facility], needs heart checked Time Seen by Provider: 01/01/24 16:59 Source: patient History of Present Illness HPI Narrative: 83-year-old female with 4 days of left scapular wing area discomfort, not particularly worse with movement. No known history of coronary artery disease, no associated shortness of breath, no diaphoresis, no pain anterior chest or left anterior shoulder or down her arm, nor to her jaw or neck. The pain does not particularly worse with attempted movements of the upper extremity, nor with the neck bending or rotation, nor with any deep breathing. She is tried Tylenol so far, that does not seem to help. She has not tried any other therapies. 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 She has no history of blood clots, no leg pain or swelling symptoms. She was referred from walk-in clinic for possible ACS concerns and further workup. Related Data Home Medications Medication Instructions Recorded Confirmed ascorbic acid (vitamin C) 1,000 mg 1 tab PO DAILY 11/19/17 01/01/24 tablet (Vitamin C) aspirin 81 mg tablet,delayed 81 mg PO DAILY 11/19/17 01/01/24 release calcium carbonate (Calcium 600) 1 tab PO DAILYCC 11/19/17 01/01/24 cholecalciferol (vitamin D3) 50 2,000 unit PO DAILY 11/19/17 01/01/24 mcg (2,000 unit) capsule (Vitamin D3) cyanocobalamin (vitamin B-12) 2,000 mcg PO DAILY 11/19/17 01/01/24 1,000 mcg tablet (Vitamin B-12) levothyroxine 75 mcg tablet 75 mcg PO DAILY 11/19/17 01/01/24 multivitamin 1 cap PO DAILY ##0 11/19/17 01/01/24 omega 6-kbt-yhr-fish oil 1,000 mg 1 cap PO DAILY 11/19/17 01/01/24 (120 mg-180 mg) capsule (Fish Oil) lactobacillus combination no.4 3 3,000 mmu cells PO DAILY 11/13/18 01/01/24 billion cell capsule (Probiotic) turmeric root extract 500 mg 500 mg PO DAILY 11/13/18 01/01/24 capsule Previous Rx's Medication Instructions Recorded amoxicillin 875 mg-potassium 1 tab PO Q12H #14 tabs 09/30/20 clavulanate 125 mg tablet (Augmentin) hydrocodone 5 mg-acetaminophen 325 1 tab PO Q6H PRN pain #10 tabs 09/30/20 mg tablet methocarbamol 500 mg tablet 500 mg PO TID 7 days #21 tabs 01/01/24 Allergies Allergy/AdvReac Type Severity Reaction Status Date / Time No Known Drug Allergies Allergy Verified 01/01/24 16:35 Review of Systems Review of Systems Narrative: see HPI Patient History Medical History Anemia Bacterial pneumonia (11/19/17) Bruises easily Degenerative disc disease Degenerative disc disease, cervical Degenerative disc disease, lumbar HTN (hypertension) Hyperlipidemia Hypothyroidism Surgical History Hx of hysterectomy Hx of shoulder surgery Family History Father Heart disease Grandmother Cancer Social History marital status: household members: spouse Smoking Status: Never smoker alcohol intake: current substance use type: does not use Smoking Status: Never smoker alcohol intake frequency: holidays/special occasions only Substance Use Type: does not use Exam Narrative Exam Narrative: GENERAL: Well-developed patient, in mild distress. HEAD: Atraumatic. Normocephalic. EYES: Pupils equal round and reactive. Extraocular motions intact. No scleral icterus. No injection or drainage. ENT: Nose without bleeding, purulent drainage. Throat without erythema, tonsillar hypertrophy or exudate. Airway patent. NECK: Trachea midline. Non tender CARDIOVASCULAR: Regular rate and rhythm without murmurs, gallops, or rubs. RESPIRATORY: Clear to auscultation. Breath sounds equal bilaterally. No wheezes, rales, or rhonchi. GASTROINTESTINAL: Abdomen soft, non-tender, nondistended. EXTREMITIES: No edema or joint tenderness. Left rhomboid area discomfort that reproduces her scapular area of discomfort on palpation BACK: Nontender without deformity or crepitance. No flank tenderness. NEURO: AOx3. SKIN: No rash or erythema of visible areas. No rash or vesicles truncal or extremity Initial Vital Signs Initial Vital Signs: Vital Signs Temperature 98 F 01/01/24 17:06 Pulse Rate 72 01/01/24 17:06 Respiratory Rate 18 01/01/24 17:06 Blood Pressure 184/86 H 01/01/24 17:06 Pulse Oximetry 100 01/01/24 17:06 Oxygen Delivery Method Room Air 01/01/24 17:06 Course Orders Ordered: Discontinued Medications Hydromorphone HCl (Hydromorphone 0.5 Mg Inj) 0.5 mg IV NOW ONE Stop: 01/01/24 18:50 Last Admin: 01/01/24 19:14 Dose: Not Given Documented By: ARELI Methocarbamol (Methocarbamol 500 Mg Tablet) 500 mg PO NOW ONE Stop: 01/01/24 19:58 Last Admin: 01/01/24 20:14 Dose: 500 mg Documented By: DAHLIA Ondansetron HCl (Ondansetron 4 Mg/2 Ml Inj) 4 mg IV NOW ONE Stop: 01/01/24 18:50 Last Admin: 01/01/24 19:14 Dose: Not Given Documented By: ARELI Vital Signs Vital signs: Vital Signs - 8 hr 01/01/24 20:00 01/01/24 20:00 Pulse Rate 68 Respiratory Rate 18 Blood Pressure 154/76 H Pulse Oximetry 98 MDM - Back Pain/Injury Lab Data Attestation: I reviewed the patient's lab results. 01/01/24 17:35 01/01/24 17:35 Labs: Lab Results 01/01/24 Range/Units 17:35 WBC 6.0 (4.5-11.0) X10^3/uL RBC 3.96 L (4.0-5.2) X10^6/uL Hgb 12.3 (12.0-16.0) g/dL Hct 34.3 L (36-46) % MCV 86.8 (80-100) fL MCH 31.1 (26-34) PG MCHC 35.8 (30-36) % RDW 14.2 (11.6-14.8) % Plt Count 170 (150-400) X10^3/uL Neut % (Auto) 58.5 (50-75) % Lymph % (Auto) 25.7 (25-40) % [place] % (Auto) 10.0 (3-14) % Eos % (Auto) 4.7 H (2-4) % Baso % (Auto) 1.1 (0-2) % Neut # (Auto) 3500 (1898-7018) /uL Lymph # (Auto) 1600 (8624-8529) /uL [place] # (Auto) 600 (0-900) /uL Eos # (Auto) 300 (0-450) /uL Baso # (Auto) 100 (0-100) /uL Sodium 138 (137-145) mmol/L Potassium 4.0 (3.4-5.1) mmol/L Chloride 104 (98-107) mmol/L Carbon Dioxide 27 (22-32) mmol/L BUN 17 (7-17) mg/dL Creatinine 0.77 (0.52-1.04) mg/dL Estimated GFR > 60 (>60) mL/min BUN/Creatinine Ratio 22.1 H (6-22) Glucose 96 (80-110) mg/dL Calcium 10.1 (8.4-10.2) mg/dL Magnesium 2.1 (1.6-2.3) mg/dL Total Bilirubin 1.0 (0.2-1.3) mg/dL AST 35 (14-36) IU/L ALT 22 (<35) IU/L Alkaline Phosphatase 63 (38-126) U/L Total Creatine Kinase 45 (30-135) U/L Troponin I < 0.012 (0.01-0.034) ng/mL Total Protein 7.3 (6.3-8.2) g/dL Albumin 4.5 (3.5-5.0) g/dL Globulin 2.8 (1.7-4.1) g/dL Albumin/Globulin Ratio 1.6 (1.0-2.8) Lipase 300 (23-300) U/L Imaging Data Chest x-ray: Radiologist's Impression: [address] [id number] XRay Report Signed Patient: Lorena Linton MR#: [id number] : 1940 Acct:[id number] Age/Sex: 83 / F Date of Service: 01/01/24 Loc: ED Accession Number: [id number] Procedure: XR chest 1V Ordering Provider: Lanker,Ritchie D.O. PROCEDURE: XR CHEST 1V INDICATIONS: Chest pain TECHNIQUE: One view of the chest was acquired. COMPARISON: [facility], CR, XR CHEST 2V, 11/28/2017, 9:14. FINDINGS: Surgical changes and devices: None. Lungs and pleura: Lungs are clear. No pleural effusions or pneumothorax. Mediastinum: Mediastinal contours appear normal. Heart size is normal. Bones and chest wall: S-shaped scoliosis in the thoracolumbar spine, convexity to the right in the thoracic region. Overlying soft tissues appear unremarkable. IMPRESSION: No acute cardiopulmonary abnormality is seen. Dictated by: Baljeet Roe M.D. on 01/01/2024 at 17:19 Approved by: Baljeet Roe M.D. on 01/01/2024 at 17:25 ECG Data Attestation: I personally reviewed and interpreted this ECG as follows: Interpretation: Normal sinus rhythm with rate of 69, no obvious ST segment elevation or depression changes. MN 166, QRS 76, QTC 424. MDM Narrative Medical decision making narrative: 83-year-old female with left scapular area discomfort, not worse with movement, referred from clinic for possible cardiac workup. 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 I suspect patient has musculoskeletal pain. I doubt ACS at this time. Screening studies were sent from triage, unremarkable. Chest x-ray negative. EKG negative. Blood testing including troponin negative. Oral dose Robaxin, she has a ride home. Prescription for further Robaxin sent to her pharmacy. Continue gtgn-fcb-nnlgsel ibuprofen and/or Tylenol as needed. Follow up with her PCP advised if still having symptoms on Friday. Return precautions discussed. Discharge Plan Departure Patient Disposition: Home Clinical Impression: Muscle strain of left scapular region, Rhomboid muscle strain Instructions: Muscle Strain Activity Restrictions/Additional Instructions: Left shoulder blade scapular area discomfort for the last few days, not particularly worse with arm movements as would be expected with arm musculoskeletal symptoms, referred for cardiac workup, studies here were negative for cardiac concerns. And on my exam in fact there seemed to be some tenderness along the medial aspect of the left rhomboid muscle of the scapula, that seemed to reproduce your symptoms. Suspected rhomboid strain. 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 Trial of Robaxin/methocarbamol muscle relaxant. Continue use of Tylenol and or Motrin pwbv-jaa-[id number] pain medications as well. Consider stretching to the limit of tolerated discomfort. Recheck with your regular provider if not improved by Friday. Return earlier to this/nearest emergency department for any change worsening symptoms or any concerns prior Prescriptions: New methocarbamol 500 mg tablet 500 mg PO TID 7 Days Qty: 21 0RF No Action turmeric root extract 500 mg Capsule 500 mg PO DAILY Probiotic 3 billion cell Capsule 3,000 mmu cells PO DAILY levothyroxine 75 mcg tablet 75 mcg PO DAILY ascorbic acid (vitamin C) [Vitamin C] 1,000 mg Tablet 1 tab PO DAILY cyanocobalamin (vitamin B-12) [Vitamin B-12] 1,000 mcg Tablet 2,000 mcg PO DAILY aspirin 81 mg Tablet,Delayed Release (Dr/Ec) 81 mg PO DAILY calcium carbonate [Calcium 600] 600 mg calcium (1,500 mg) Tablet 1 tab PO DAILYCC multivitamin Capsule 1 cap PO DAILY Qty: 0 cholecalciferol (vitamin D3) [Vitamin D3] 2,000 unit Capsule 2,000 unit PO DAILY omega 4-hjz-awo-fish oil [Fish Oil] 1,000 mg (120 mg-180 mg) Capsule 1 cap PO DAILY hydrocodone-acetaminophen 5-325 mg tablet 1 tab PO Q6H PRN (Reason: pain) Qty: 10 0RF amoxicillin-pot clavulanate [Augmentin] 875-125 mg tablet 1 tab PO Q12H Qty: 14 0RF Referrals: Sonia Tyler PA-C [Primary Care Provider] - Stand Alone Forms: Patient Portal/API
[2024-01-01] MEDS: methocarbamoL 500 MG TABLET PO (20:14)
== END 2024-01-01 20:18 | disposition home or self-care (01) ==
PROVIDERS: Emergency Medicine; Emergency Provider Emergency Medicine; Family Provider Student in an Organized Health Care Education/Training Program; PCP Student in an Organized Health Care Education/Training Program
DX: S46.812A Strain of other muscles, fascia and tendons at shoulder and upper arm level, left arm, initial encounter (principal); S29.012A Strain of muscle and tendon of back wall of thorax, initial encounter; R07.9 Chest pain, unspecified
CPT/HCPCS: 36415; 71045; 80053; 82550; 83690; 83735; 84484; 85025; 93005; 93010; 99284

== ENCOUNTER → 2024-08-18 12:59 | Outpatient (CLI) | payer MEDICARE, SELFPAY ==
[2017-11-19 19:55] VITALS: BMI 22.3
--- NOTE | 2024-08-18 13:01 | DI.RAD.S_ITS ---
PROCEDURE: XR DEXA AXIAL SKELETON INDICATIONS: osteopenia COMPARISON: [facility], CR, DEXA COMPLETE, 06/03/2022, 15:12. FINDINGS: Lumbar Spine: Bone mineral density 1.16 g/cm2, T score 0.7,. Left Femoral Neck: Bone mineral density 0.69 g/cm2, T score -1.5. Previously -1 Left Hip: Bone mineral density 0.76 g/cm2, T score -1.5,. Previously -1 Fracture Risk Calculation (when applicable): 10-year fracture risk of a major osteoporotic fracture 11% percent and of a hip fracture 3.1% percent. (T score greater or equal to -1.0 to: NORMAL) (T score from -1.1 to -2.4: OSTEOPENIA) (T score less than or equal to -2.5: OSTEOPOROSIS) IMPRESSION: Osteopenia, with T-scores above. Fracture risk is elevated. T-scores have declined in the left femoral neck and hip. Follow-up guidelines as follows: Osteoporosis: Consider a repeat DEXA and Vertebral Fracture Assessment (VFA) exam in 2 years or sooner if medically necessary, to reassess this patient's status. Osteopenia: Consider a repeat DEXA in 2-3 years to reassess this patient's status, or if there is a new clinical indication. Normal: Consider a repeat DEXA in 5 years or sooner, or if there is a new clinical indication. All treatment decisions require clinical judgment and consideration of individual patient factors, including patient preferences, comorbidities, previous drug use, risk factors not captured in the FRAX model (e.g., frailty, falls, vitamin D deficiency, increased bone turnover, interval significant decline in bone density ) and possible under- or over-estimation of fracture risk by FRAX. In addition, the NOF Guide recommends that FDA-approved medical therapies be considered in postmenopausal women and men age >= 50 years with a: * Hip or vertebral (clinical or morphometric) fracture * T-score of <=-2.5 at the spine or hip * Ten-year fracture probability by FRAX of >= 3% for hip fracture or >=20% for major osteoporotic fracture. Dictated by: Saad Varghese M.D. on 08/18/2024 at 17:00 Approved by: Saad Varghese M.D. on 08/18/2024 at 17:02
== END ==
PROVIDERS: Family Provider Student in an Organized Health Care Education/Training Program; PCP Internal Medicine; Referring Provider Student in an Organized Health Care Education/Training Program; Visit Provider Student in an Organized Health Care Education/Training Program
DX: N95.9 Unspecified menopausal and perimenopausal disorder (principal); M85.89 Other specified disorders of bone density and structure, multiple sites
CPT/HCPCS: 77080

== ENCOUNTER → 2024-10-08 12:57 | Outpatient (CLI) | payer MEDICARE, SELFPAY ==
[2017-11-19 19:55] VITALS: BMI 22.3
--- NOTE | 2024-10-08 12:58 | DI.MG.S_ITS ---
MM screening mammo BI: 10/08/2024. BI-RADS: 1 CLINICAL: 84-year old female for bilateral screening mammogram. Tyrer-Cuzick lifetime risk of 0.2%. No personal or first-degree family history of breast cancer. Current reported family history of breast cancer: maternal grandmother. PRIOR EXAMS 09/16/2023, 08/12/2022, 08/06/2021, 07/24/2020, 07/19/2019, 07/14/2017, 07/08/2016, 07/03/2015. MAMMOGRAPHY TECHNIQUE: 2D and 3D (tomosynthesis) digital mammographic views obtained, with additional images as needed for full coverage. Current study was also evaluated with a Computer Aided Detection (CAD) system. DENSITY C. The breasts are heterogeneously dense, which may obscure small masses. MAMMOGRAPHY FINDINGS Bilateral: No suspicious mass, asymmetry, microcalcification, or other abnormality seen. IMPRESSION: * No evidence of malignancy. RECOMMENDATIONS Bilateral * Annual screening mammography. OVERALL ASSESSMENT CATEGORY BI-RADS-1: Negative. The [employer] recommends annual screening mammography beginning at age 40 for women with average risk of breast cancer. ELECTRONICALLY SIGNED: Armida Morales M.D. on 10/11/2024 at 01:23:15 AM PT Interpreting Station ID: [id number]
== END ==
PROVIDERS: Family Provider Student in an Organized Health Care Education/Training Program; PCP Internal Medicine; Referring Provider Internal Medicine; Visit Provider Internal Medicine
DX: Z12.31 Encounter for screening mammogram for malignant neoplasm of breast (principal); R92.333 Mammographic heterogeneous density, bilateral breasts; Z80.3 Family history of malignant neoplasm of breast
CPT/HCPCS: 77063; 77067

== ENCOUNTER → 2024-10-15 09:45 | Outpatient (CLI) | payer MEDICARE, SELFPAY ==
[2017-11-19 19:55] VITALS: BMI 22.3
[2024-10-15 11:02] LABS: BUN Creatinine Ratio 22.4 (6-22); Blood Urea Nitrogen 19 mg/dL (7-17); Calcium 9.6 mg/dL (8.4-10.2); Carbon Dioxide 31 mmol/L (22-32); Chloride 102 mmol/L (98-107); Cholesterol 247 mg/dL (140-199); Estimated Glomerular Filt Rate > 60 mL/min (>60); Glucose 97 mg/dL (70-99); HDL Cholesterol 88 mg/dL (40-60); HEMOLYSIS < 15 (0-50); LDL Cholesterol Calculated 138 mg/dL (<100); Sodium 138 mmol/L (137-145); Triglycerides 106 mg/dL (35-150)
[2024-10-15 11:34] LABS: TSH w/ Reflex to FT4 2.49 uIU/mL (0.47-4.68)
== END ==
PROVIDERS: Family Provider Student in an Organized Health Care Education/Training Program; PCP Internal Medicine; Referring Provider Internal Medicine; Visit Provider Internal Medicine
DX: E03.9 Hypothyroidism, unspecified (principal); E78.2 Mixed hyperlipidemia; I10 Essential (primary) hypertension
CPT/HCPCS: 36415; 80048; 80061; 84443